=== PATIENT | female | born 1950 | race Caucasian/White ===

== ENCOUNTER → 2016-11-15 | Outpatient (CLI) | payer BC, MEDICARE ==
--- NOTE | 2016-11-15 10:44 | MM ---
Reason for exam: history of breast cancer, conservation therapy. Last mammogram was performed 1 year ago. History: Patient is postmenopausal and has history of breast cancer at age 63. Lumpectomy of the right breast, March 19, 2014. Malignant MG stereo VAD BX RT of the right breast, March 10, 2014. Radiation therapy of the right breast, March 2014. Benign core biopsy of the left breast, 2004. Benign excisional biopsy of the left breast, 1999. Taking antineoplastic for 2 years beginning at age 63. Physical Findings: Nurse did not find any significant physical abnormalities on exam. MG Diagnostic Mammo w CAD RICO Bilateral CC and MLO view(s) were taken. ML, spot compression MLO, and spot compression CC view(s) were taken of the left breast. Prior study comparison: November 01, 2014, bilateral MG diagnostic mammo w CAD RICO. There are scattered fibroglandular densities. Finding #1: Architectural distortion in both breasts. Finding #2: There are typically benign dystrophic, round calcifications in both breasts. Previous mammotome biopsy in the left breast. Increased dystrophic calcifications anteriorly left breast. These results were verbally communicated with the patient and result sheet given to the patient on 11/15/16. ASSESSMENT: Benign, BI-RAD 2 RECOMMENDATION: Routine screening mammogram of both breasts in 1 year.
== END | disposition home or self-care (01) ==
LOC: RADMAMWWP 09:09
PROVIDERS: ATTEND Radiology Diagnostic Radiology
DX: C50.911 Malignant neoplasm of unspecified site of right female breast (principal)

== ENCOUNTER → 2019-07-16 | Outpatient (CLI) | payer MEDICARE ==
--- NOTE | 2019-07-16 13:42 | US ---
EXAMINATION TYPE: US venous doppler duplex LE RT DATE OF EXAM: 07/16/2019 1:31 PM COMPARISON: NONE CLINICAL HISTORY: M79.661 PAIN IN RT LOWER LIMB. Fell 09 of April swelling of ankles pain in calf SIDE PERFORMED: RT TECHNIQUE: The lower extremity deep venous system is examined utilizing real time linear array sonog william with graded compression, doppler sonography and color-flow sonography. VESSELS IMAGED: External Iliac Vein (EIV) Common Femoral Vein Deep Femoral Vein Greater Saphenous Vein * Femoral Vein Popliteal Vein Small Saphenous Vein * Proximal Calf Veins (* superficial vessels) Right Leg: Negative for DVT Grayscale, color doppler, spectral doppler imaging performed of the deep veins of the right lower ext remity. There is normal flow, compressibility, vascular waveforms. IMPRESSION: No ultrasound evidence for acute DVT in the right lower extremity.
== END | disposition home or self-care (01) ==
LOC: RADUSWWP 12:43
PROVIDERS: ATTEND Family Medicine
DX: M79.661 Pain in right lower leg (principal)

== ENCOUNTER 2023-05-06 04:23 | Emergency (ER) | payer MEDICARE ==
[2023-05-06 04:33] VITALS: TEMP 97.9
[2023-05-06] MEDS ORDERED: ONDANSETRON 4 MG/2 ML VIAL IVP STA (05:30)
[2023-05-06] MEDS ORDERED: SODIUM CHLORIDE 0.9% 1,000 ML IV STA (05:30)
--- NOTE | 2023-05-06 05:31 | ED ---
Abdominal Pain HPI - General Source: patient, family, RN notes reviewed, old records reviewed Mode of arrival: wheelchair Limitations: no limitations - History of Present Illness MD Complaint: abdominal pain -: hour(s) Location: epigastric, suprapubic Radiation: epigastric, suprapubic Migration to: no migration Severity: moderate Severity scale (1-10): 7 Quality: sharp Consistency: constant Improves With: nothing Worsens With: nothing Associated Symptoms: nausea, vomiting Treatments Prior to Arrival: other (0) <Cruzito Leonard - Last Filed: 05/06/23 06:11> <Brando Underwood - Last Filed: 05/06/23 08:51> - General Chief Complaint: Abdominal Pain Stated Complaint: Abd Pain, Vomitting Time Seen by Provider: 05/06/23 04:52 - History of Present Illness Initial Comments: This is a 73-year-old female to the emergency department for evaluation today. Patient presents today for evaluation of abdominal pain abdominal pain with nausea and vomiting periumbilical fullness no fevers. Patient's pain is persistent bleeding to persistent nausea vomiting. Patient states this is severe abdominal pain is getting worse. She's never sore pain before and does have history of appendectomy (Cruzito Leonard) - Related Data Previous Rx's Medication Instructions Recorded Cephalexin [Keflex] 500 mg PO Q12HR #20 cap 05/06/23 HYDROcodone/APAP 5-325MG [[place] 1 tab PO Q6HR PRN #12 tab 05/06/23 5-325] Allergies Allergy/AdvReac Type Severity Reaction Status Date / Time latex Allergy Rash/Hives Verified 05/06/23 04:33 Review of Systems ROS Other: All systems not noted in ROS Statement are negative. <Cruzito Leonard - Last Filed: 05/06/23 06:11> ROS Other: All systems not noted in ROS Statement are negative. <Brando Underwood - Last Filed: 05/06/23 08:51> ROS Statement: Those systems with pertinent positive or pertinent negative responses have been documented in the HPI. Past Medical History Additional Past Medical History / Comment(s): Breast CA, Past Surgical History: Breast Surgery, Tubal Ligation Additional Past Surgical History / Comment(s): Ulcer Smoking Status: Never smoker Past Alcohol Use History: None Reported Past Drug Use History: None Reported <Cruzito Leonard - Last Filed: 05/06/23 06:11> General Exam General appearance: alert, in no apparent distress Head exam: Present: atraumatic, normocephalic, normal inspection Eye exam: Present: normal appearance, PERRL, EOMI. Absent: scleral icterus, conjunctival injection, periorbital swelling ENT exam: Present: normal exam, mucous membranes moist Neck exam: Present: normal inspection. Absent: tenderness, meningismus, lymphadenopathy Respiratory exam: Present: normal lung sounds bilaterally. Absent: respiratory distress, wheezes, rales, rhonchi, stridor Cardiovascular Exam: Present: regular rate, normal rhythm, normal heart sounds. Absent: systolic murmur, diastolic murmur, rubs, gallop, clicks GI/Abdominal exam: Present: soft, normal bowel sounds. Absent: distended, tenderness, guarding, rebound, rigid Extremities exam: Present: normal inspection, full ROM, normal capillary refill. Absent: tenderness, pedal edema, joint swelling, calf tenderness Back exam: Present: normal inspection Neurological exam: Present: alert, oriented X3, CN II-XII intact Psychiatric exam: Present: normal affect, normal mood Skin exam: Present: warm, dry, intact, normal color. Absent: rash <Cruzito Leonard - Last Filed: 05/06/23 06:11> Course <Cruzito Leonard - Last Filed: 05/06/23 06:11> Vital Signs 05/06/23 05/06/23 05/06/23 04:28 06:00 07:49 Temperature 97.9 F Pulse Rate 72 61 57 L Respiratory 20 18 18 Rate Blood Pressure 141/83 107/67 111/58 O2 Sat by Pulse 100 96 96 Oximetry - Reevaluation(s) Reevaluation #1: 05/06/23 06:12 Medical record is reviewed (Cruzito Leonard) Reevaluation #2: 05/06/23 06:13 Patient symptoms are improved (Cruzito Leonard) Reevaluation #3: 05/06/23 06:13 Spoke with patient regarding for results and questions answered (Cruzito Leonard) Reevaluation #4: 05/06/23 06:14 Was pt. sent in by a medical professional or institution ([facility], [facility], urgent care, hospital, or long-term...) When possible be specific @ -no Did you speak to anyone other than the patient for history (EMS, parent, family, police, friend...)? What history was obtained from this source @ -no Did you review nursing and triage notes (agree or disagree)? Why? @ -agree Are old charts reviewed (outside hosp., previous admission, EMS record, old EKG, old radiological studies, urgent care reports/EKG's, long-term records)? Report findings @ -yes Differential Diagnosis (chest pain, altered mental status, abdominal pain women, abdominal pain men, vaginal bleeding, weakness, fever, dyspnea, syncope, headache, dizziness, GI bleed, back pain, seizure, CVA, palpatations, mental health, musculoskeletal)? @ -prior EKG interpreted by me (3pts min.). @ -yes X-rays interpreted by me (1pt min.). @ -yes CT interpreted by me (1pt min.). @ -no U/S interpreted by me (1pt. min.). @ -no What testing was considered but not performed or refused? (CT, X-rays, U/S, labs)? Why? @ -none What meds were considered but not given or refused? Why? @ -none Did you discuss the management of the patient with other professionals (professionals i.e. [facility], [facility], lab, RT, psych nurse, nursing home social worker, day haul youth supervisor, teacher, staff air defense officer, case mgr)? Give summary @ -no Was smoking cessation discussed for >3mins.? @ -no Was critical care preformed (if so, how long)? @ -no Were there social determinants of health that impacted care today? How? (Homelessness, low income, unemployed, alcoholism, drug addiction, transportation, low edu. Level, literacy, decrease access to med. care, long-term, rehab)? @ -none Was there de-escalation of care discussed even if they declined (Discuss DNR or withdrawal of care, Hospice)? DNR status @ -no What co-morbidities impacted this encounter? (DM, HTN, Smoking, COPD, CAD, Cancer, CVA, ARF, Chemo, Hep., AIDS, mental health diagnosis, sleep apnea, morbid obesity)? @ -none Was patient admitted / discharged? Hospital course, mention meds given and route, prescriptions, significant lab abnormalities, going to OR and other pertinent info. @ - Undiagnosed new problem with uncertain prognosis? @ -no Drug Therapy requiring intensive monitoring for toxicity (Heparin, Nitro, Insulin, Cardizem)? @ -no Were any procedures done? @ -no Diagnosis/symptom? @ - Acute, or Chronic, or Acute on Chronic? @ -Acute Uncomplicated (without systemic symptoms) or Complicated (systemic symptoms)? @ -Complicated Side effects of treatment? @ -no Exacerbation, Progression, or Severe Exacerbation? @ -exacerbation Poses a threat to life or bodily function? How? (Chest pain, USA, ME, pneumonia, PE, COPD, DKA, ARF, appy, cholecystitis, CVA, Diverticulitis, Homicidal, Brianna cidal, threat to staff... and all critical care pts) @ -yes (Cruzito Leonard) Reevaluation #5: 05/06/23 06:14 Differential Abdominal Pain Women: Appendicitis, Cholecystitis, diverticulosis, ischemic bowel, pancreatitis, hepatitis, UTI, gastroenteritis, AAA, incarcerated hernia, bowel obstruction, constipation, inflammatory bowel, hepatitis, peptic ulcer disease, splenic infarction, perforated viscus, vulvitis, ovarian torsion, PID, kidney stone, placenta abruption, this is not meant to be an all-inclusive list (Cruzito Leonard) Medical Decision Making - EKG Data -: EKG Interpreted by Me (EKG is bradycardia 57 MO 84 QRS 87 QTC 420) <Cruzito Leonard - Last Filed: 05/06/23 06:11> - Lab Data Result diagrams: 05/06/23 05:42 05/06/23 05:42 <Brando Underwood - Last Filed: 05/06/23 08:51> - Medical Decision Making Was pt. sent in by a medical professional or institution (, [facility], [facility], urgent care, hospital, or long-term...) When possible be specific @ -No Did you speak to anyone other than the patient for history (EMS, parent, family, police, friend...)? What history was obtained from this source @ -[Patient's son who is at bedside Did you review nursing and triage notes (agree or disagree)? Why? @ -I reviewed and agree with nursing and triage notes Were old charts reviewed (outside hosp., previous admission, EMS record, old EKG, old radiological studies, urgent care reports/EKG's, long-term records)? Report findings @ -No old charts were reviewed Differential Diagnosis (chest pain, altered mental status, abdominal pain women, abdominal pain men, vaginal bleeding, weakness, fever, dyspnea, syncope, headache, dizziness, GI bleed, back pain, seizure, CVA, palpatations, mental health, musculoskeletal)? @ -[Differential Abdominal Pain Women: Appendicitis, Cholecystitis, diverticulosis, ischemic bowel, pancreatitis, hepatitis, UTI, gastroenteritis, AAA, incarcerated hernia, bowel obstruction, constipation, inflammatory bowel, hepatitis, peptic ulcer disease, splenic infarction, perforated viscus, PID, kidney stone, , this is not meant to be an all-inclusive list EKG interpreted by me (3pts min.). @ -As above X-rays interpreted by me (1pt min.). @ -None done CT interpreted by me (1pt min.). @ -CT showing left-sided hydronephrosis with obstructing distal stone U/S interpreted by me (1pt. min.). @ -None done What testing was considered but not performed or refused? (CT, X-rays, U/S, labs)? Why? @ -None What meds were considered but not given or refused? Why? @ -None Did you discuss the management of the patient with other professionals (professionals i.e. , PA, [facility], lab, RT, psych nurse, nursing home social worker, day haul youth supervisor, teacher, staff air defense officer, case mgr)? Give summary @ -No Was smoking cessation discussed for >3mins.? @ -No Was critical care preformed (if so, how long)? @ -No Were there social determinants of health that impacted care today? How? (Homelessness, low income, unemployed, alcoholism, drug addiction, trans portation, low edu. Level, literacy, decrease access to med. care, long-term, rehab)? @ -No Was there de-escalation of care discussed even if they declined (Discuss DNR or withdrawal of care, Hospice)? DNR status @ -No What co-morbidities impacted this encounter? (DM, HTN, Smoking, COPD, CAD, Cancer, CVA, ARF, Chemo, Hep., AIDS, mental health diagnosis, sleep apnea, morbid obesity)? @ -History of kidney stone, Was patient admitted / discharged? Hospital course, mention meds given and r oute, prescriptions, significant lab abnormalities, going to OR and other pertinent info. @ -73-year-old female, care had been signed out at shift change awaiting CT imaging. She had presented with lower abdominal pain which she states was bilateral. This was associated with nausea vomiting. This was sudden onset. CT shows an obstructing stone in the left ureter. Patient had been given pain medication. She had a normal CBC without leukocytosis, normal CMP, normal lactic acid. Urinalysis was nitrate positive with rare bacteria. Urine culture was obtained. Given the obstructing stone she does receive prophylactic antibiotics although this is a quite minimally positive urinalysis. She feels 100% better throughout her stay in the emergency department after initial pain medication. No further vomiting. She's given a urine strainer. She is given prophylactic antibiotics. She will follow-up with urology. She's given strict return parameters. Undiagnosed new problem with uncertain prognosis? @ -No Drug Therapy requiring intensive monitoring for toxicity (Heparin, Nitro, Insulin, Cardizem)? @ -No Were any procedures done? @ -No Diagnosis/symptom? @ Obstructing kidney stone Acute, or Chronic, or Acute on Chronic? @ -[Acute Uncomplicated (without systemic symptoms) or Complicated (systemic symptoms)? @ -default Side effects of treatment? @ -No Exacerbation, Progression, or Severe Exacerbation? @ -No Poses a threat to life or bodily function? How? (Chest pain, USA, ME, pneumonia, PE, COPD, DKA, ARF, appy, cholecystitis, CVA, Diverticulitis, Homicidal, Suicidal, threat to staff... and all critical care pts) @ -[Low risk at this time (Brando Underwood) - Lab Data Lab Results 05/06/23 05/06/23 05/06/23 Range/Units 05:42 05:42 05:42 WBC 9.0 (3.8-10.6) k/uL RBC 5.04 (3.80-5.40) m/uL Hgb 14.5 (11.4-16.0) gm/dL Hct 43.8 (34.0-46.0) % MCV 86.8 (80.0-100.0) fL MCH 28.8 (25.0-35.0) pg MCHC 33.2 (31.0-37.0) g/dL RDW 15.9 H (11.5-15.5) % Plt Count 249 (150-450) k/uL MPV 9.3 Neutrophils % 81 % Lymphocytes % 10 % Monocytes % 7 % Eosinophils % 0 % Basophils % 0 % Neutrophils # 7.3 (1.3-7.7) k/uL Lymphocytes # 0.9 L (1.0-4.8) k/uL Monocytes # 0.6 (0-1.0) k/uL Eosinophils # 0.0 (0-0.7) k/uL Basophils # 0.0 (0-0.2) k/uL Sodium 134 L (137-145) mmol/L Potassium 4.7 (3.5-5.1) mmol/L Chloride 102 (98-107) mmol/L Carbon Dioxide 23 (22-30) mmol/L Anion Gap 9 mmol/L BUN 14 (7-17) mg/dL Creatinine 0.50 L (0.52-1.04) mg/dL Est GFR (CKD-EPI)AfAm >90 (>60 ml/min/1.73 sqM) Est GFR (CKD-EPI)NonAf >90 (>60 ml/min/1.73 sqM) Glucose 101 H (74-99) mg/dL Plasma Lactic Acid [place] 1.7 (0.7-2.0) mmol/L Calcium 9.5 (8.4-10.2) mg/dL Total Bilirubin 1.2 (0.2-1.3) mg/dL AST 41 H (14-36) U/L ALT 32 (4-34) U/L Alkaline Phosphatase 69 (38-126) U/L Total Protein 8.4 H (6.3-8.2) g/dL Albumin 4.1 (3.5-5.0) g/dL Amylase 47 (30-110) U/L Lipase 49 (23-300) U/L Urine Color Urine Appearance (Clear) Urine pH (5.0-8.0) Ur Specific [place] (1.001-1.035) Urine Protein (Negative) Urine Glucose (UA) (Negative) Urine Ketones (Negative) Urine Blood (Negative) Urine Nitrite (Negative) Urine Bilirubin (Negative) Urine Urobilinogen (<2.0) mg/dL Ur Leukocyte Esterase (Negative) Urine WBC (0-5) /hpf Urine Bacteria (None) /hpf 05/06/23 Range/Units 07:40 WBC (3.8-10.6) k/uL RBC (3.80-5.40) m/uL Hgb (11.4-16.0) gm/dL Hct (34.0-46.0) % MCV (80.0-100.0) fL MCH (25.0-35.0) pg MCHC (31.0-37.0) g/dL RDW (11.5-15.5) % Plt Count (150-450) k/uL MPV Neutrophils % % Lymphocytes % % Monocytes % % Eosinophils % % Basophils % % Neutrophils # (1.3-7.7) k/uL Lymphocytes # (1.0-4.8) k/uL Monocytes # (0-1.0) k/uL Eosinophils # (0-0.7) k/uL Basophils # (0-0.2) k/uL Sodium (137-145) mmol/L Potassium (3.5-5.1) mmol/L Chloride (98-107) mmol/L Carbon Dioxide (22-30) mmol/L Anion Gap mmol/L BUN (7-17) mg/dL Creatinine (0.52-1.04) mg/dL Est GFR (CKD-EPI)AfAm (>60 ml/min/1.73 sqM) Est GFR (CKD-EPI)NonAf (>60 ml/min/1.73 sqM) Glucose (74-99) mg/dL Plasma Lactic Acid [place] (0.7-2.0) mmol/L Calcium (8.4-10.2) mg/dL Total Bilirubin (0.2-1.3) mg/dL AST (14-36) U/L ALT (4-34) U/L Alkaline Phosphatase (38-126) U/L Total Protein (6.3-8.2) g/dL Albumin (3.5-5.0) g/dL Amylase (30-110) U/L Lipase (23-300) U/L Urine Color Colorless Urine Appearance Clear (Clear) Urine pH 8.0 (5.0-8.0) Ur Specific [place] 1.020 (1.001-1.035) Urine Protein Negative (Negative) Urine Glucose (UA) Negative (Negative) Urine Ketones Trace (Negative) Urine Blood Negative (Negative) Urine Nitrite Positive (Negative) Urine Bilirubin Negative (Negative) Urine Urobilinogen <0.2 (<2.0) mg/dL Ur Leukocyte Esterase Negative (Negative) Urine WBC 4 (0-5) /hpf Urine Bacteria Moderate H (None) /hpf Disposition <Cruzito Leonard - Last Filed: 05/06/23 06:11> Is patient prescribed a controlled substance at d/c from ED?: No Time of Disposition: 08:48 <Brando Underwood - Last Filed: 05/06/23 08:51> Clinical Impression: Calculus of kidney, Hydronephrosis Disposition: HOME SELF-CARE Condition: Good Instructions (If sedation given, give patient instructions): Kidney Stones (ED), Renal Colic (ED) Prescriptions: Cephalexin [Keflex] 500 mg PO Q12HR #20 cap HYDROcodone/APAP 5-325MG [[place] 5-325] 1 tab PO Q6HR PRN #12 tab PRN Reason: Pain Referrals: Awilda Madden NPC [Primary Care Provider] - 1-2 days Robinson Starr MD [STAFF PHYSICIAN] - 1-2 days
[2023-05-06] MEDS ORDERED: MORPHINE SULFATE 4 MG/ML SYRINGE IVP STA (05:46)
[2023-05-06 06:13] LABS: Basophils % (A) 0 %; Eosinophils % (A) 0 %; HCT 43.8 % (34.0-46.0); HGB 14.5 gm/dL (11.4-16.0); Lymphocytes # (A) 0.9 k/uL (1.0-4.8); Lymphocytes % (A) 10 %; MCH 28.8 pg (25.0-35.0); MCHC 33.2 g/dL (31.0-37.0); MCV 86.8 fL (80.0-100.0); Mean Platelet Volume 9.3; Monocytes # (A) 0.6 k/uL (0-1.0); Monocytes % (A) 7 %; Neutrophils # (A) 7.3 k/uL (1.3-7.7); Neutrophils % (A) 81 %; Platelet Count 249 k/uL (150-450); RBC 5.04 m/uL (3.80-5.40); RDW 15.9 % (11.5-15.5)
[2023-05-06 06:28] LABS: ALT 32 U/L (4-34); AST 41 U/L (14-36); African American GFR (CKD) >90 (>60 ml/min/1.73 sqM); Albumin 4.1 g/dL (3.5-5.0); Alkaline Phosphatase 69 U/L (38-126); Amylase 47 U/L (30-110); Anion Gap 9 mmol/L; Blood Urea Nitrogen 14 mg/dL (7-17); Calcium 9.5 mg/dL (8.4-10.2); Carbon Dioxide 23 mmol/L (22-30); Chloride 102 mmol/L (98-107); Glucose 101 mg/dL (74-99); Lipase 49 U/L (23-300); Non-African American GFR(CKD) >90 (>60 ml/min/1.73 sqM); Potassium 4.7 mmol/L (3.5-5.1); Sodium 134 mmol/L (137-145); Total Bilirubin 1.2 mg/dL (0.2-1.3); Total Protein 8.4 g/dL (6.3-8.2)
[2023-05-06 06:32] VITALS: RESP 18
--- NOTE | 2023-05-06 07:20 | CT ---
EXAMINATION TYPE: CT abdomen pelvis wo con CT DLP: 406.8 mGycm, Automated exposure control for dose reduction was used. DATE OF EXAM: 05/06/2023 6:11 AM COMPARISON: None CLINICAL INDICATION:Female, 73 years old with history of pain; TECHNIQUE: Axial CT of the abdomen and pelvis. Sagittal and coronal reformats were created on a [employer] workstation. Contrast used: mL of , (none if empty) Oral contrast used: (none if empty) FINDINGS: LOWER CHEST: Breast clips in the right breast. ABDOMEN LIVER: Unremarkable GALLBLADDER AND BILE DUCTS: Unremarkable. PANCREAS: Unremarkable. SPLEEN: Unremarkable. ADRENAL GLANDS: Unremarkable. KIDNEYS AND URETERS: Obstructing left ureteral calculus at the ureteral pelvic brim measuring up to 1 0 x 7 mm. Mild left hydronephrosis. Additional nonobstructing left 6 mm calculus. No right renal calc victorina or hydronephrosis. PELVIS BLADDER: Unremarkable REPRODUCTIVE: Unremarkable. ABDOMEN & PELVIS STOMACH AND BOWEL: No evidence of bowel obstruction. Scattered colonic diverticula. There may be mild wall thickening of the sigmoid colon. PERITONEUM/RETROPERITONEUM: No evidence of pneumoperitoneum or free fluid. VASCULATURE: No evidence of aortic aneurysm. Severe degeneration changes of the hips bilaterally with subchondral cysts and sclerosis on the right with complete loss of joint space. MUSCULOSKELETAL: No acute osseous abnormalities LYMPH NODES: No gross evidence for lymphadenopathy. SOFT TISSUE/ABDOMINAL WALL: Fat-containing umbilical hernia. IMPRESSION: 1. There is mild hydronephrosis secondary to ureteral calculus in the left mid ureter near the pelvi c brim measuring up to 10 x 7 mm. Additional nonobstructing left renal calculus. 2. Sigmoid wall thickening suggestive of colitis with superimposed Colonic diverticulosis.
[2023-05-06 08:22] LABS: Appearance,Urine Clear (Clear); Color,Urine Colorless
[2023-05-06 08:23] LABS: Bilirubin,Urine Negative (Negative); Blood,Urine Negative (Negative); Glucose,Urine (UA) Negative (Negative); Ketones,Urine Trace (Negative); Nitrite,Urine Positive (Negative); Protein,Urine Negative (Negative); Urobilinogen,Urine <0.2 mg/dL (<2.0)
[2023-05-06 08:24] LABS: Leukocyte Esterase,Urine Negative (Negative)
[2023-05-06 08:27] LABS: Bacteria,Urine Moderate /hpf
[2023-05-06 08:28] LABS: WBC,Urine 4 /hpf (0-5)
[2023-05-06] MEDS ORDERED: cefTRIAXone IN SWFI 1,000 MG/10 ML SYRINGE IVP STA (08:40)
[2023-05-06 08:56] VITALS: BP 149/64; PULSE 55
== END 2023-05-06 09:23 | disposition home or self-care (01) ==
LOC: EC 04:23
DX: N13.2 Hydronephrosis with renal and ureteral calculous obstruction (principal); Z91.040 Latex allergy status
CPT/HCPCS: 36415; 80053; 82150; 83605; 83690; 85025; 81001; 87086; 74176; 99285; 96374; 96375 ×2; 96361 ×2; J2270; J2405; J0696

== ENCOUNTER → 2023-05-09 | Day surgery (SDC) | payer MEDICARE ==
[2023-05-08 10:19] VITALS: BMI 23.4
--- NOTE | 2023-05-08 22:05 | P.GSHP ---
History of Present Illness H&P Date: 05/08/23 Chief Complaint: Left renal colic The patient is a 73-year-old white female with a history of urolithiasis in the remote past. She now presents with abdominal pain which began 05/05/2023. CT scan shows mild left hydronephrosis due to a 7 x 10 mm left distal ureteral calculus. A left upper pole renal calculus was also seen. - Constitutional Constitutional: Reports chills, Reports fever - Gastrointestinal Gastrointestinal: Reports nausea, Reports vomiting - Genitourinary (Female) Genitourinary: Denies dysuria, Denies hematuria Past Medical History Past Medical History: Cancer, Osteoarthritis (OA), Rheumatoid Arthritis (RA) Additional Past Medical History / Comment(s): left kidney stones-having alot of nausea-not taking very much fluids in or tolerating food., rt Breast CA 2013- received radiation tx's/no chem,bleeding ulcer History of Any Multi-Drug Resistant Organisms: None Reported Past Surgical History: Appendectomy, Breast Surgery, Tubal Ligation Additional Past Surgical History / Comment(s): rt breast lumpectomy,EGD,colonoscopy,pain clinic procedures to back Past Anesthesia/Blood Transfusion Reactions: No Reported Reaction Additional Past Anesthesia/Blood Transfusion Reaction / Comment(s): no hx blood transfusion Smoking Status: Former smoker - Past Family History Mother Family Medical History: No Reported History Medications and Allergies Home Medications Medication Instructions Recorded Confirmed Type Cephalexin [Keflex] 500 mg PO Q12HR #20 cap 05/06/23 05/08/23 Rx Cholecalciferol [Vitamin D3 (25 25 mcg PO DAILY 05/08/23 05/08/23 History Mcg = 1000 Iu)] Ketorolac [Toradol] 10 mg PO Q6HR PRN 05/08/23 05/08/23 History Multivitamins, Thera [Multivitamin 1 tab PO DAILY 05/08/23 05/08/23 History (formulary)] Ondansetron [Zofran] 4 mg PO Q6H PRN 05/08/23 05/08/23 History Allergies Allergy/AdvReac Type Severity Reaction Status Date / Time latex Allergy Rash/Hives Verified 05/08/23 10:05 hydrocodone AdvReac Nausea & Verified 05/08/23 10:34 Vomiting Surgical - Exam - General well developed, well nourished, moderate distress - Neck no masses, trachea midline - Respiratory normal respiratory effort - Abdomen Abdomen: soft, non tender, no guarding, no rigid, no rebound - Psychiatric oriented to time, oriented to person, oriented to place, speech is normal, memory intact Results - Imaging CT scan - abdomen: report reviewed, image reviewed Assessment and Plan Assessment: The patient has a large distal ureteral calculus which does not have a particularly high chance of spontaneous passage. She was offered the options of medical expulsion therapy, extracorporal shockwave lithotripsy (ESWL), and ureteroscopy with laser lithotripsy. (1) Calculus of ureter Status: Acute Code(s): N20.1 - CALCULUS OF URETER SNOMED Code(s): 46234737 (2) Calculus of kidney Status: Acute Code(s): N20.0 - CALCULUS OF KIDNEY SNOMED Code(s): 45064766 Plan: Cystoscopy, left ureteroscopy with Holmium laser lithotripsy and possible stone basketing, left ureteral stent insertion. The procedures been reviewed in detail with the patient. She has been made aware of potential risks, which include anesthesia, bleeding, infection, inability to remove the calculi, and ureteral injury.
[~2023-05-09] MED LIST: DEXAMETHASONE SOD PHOSPHATE 4 MG/ML 1 ML VIAL IV ONE; GENTAMICIN 68 MG in SODIUM CHLORIDE 0.9% 100 ML IVPB PRN; GLYCOPYRROLATE 0.2 MG/ML 2 ML VIAL ONE; LACTATED RINGERS 1,000 ML IV SCH; LIDOCAINE 2% INJ 20 MG/ML (2 ML VIAL) ONE; NEOSTIGMINE 1 MG/ML 10 ML VIAL ONE; ONDANSETRON 4 MG/2 ML VIAL IVP ONE; PROPOFOL 10 MG/ML 20 ML VIAL IV ONE; ROCURONIUM 10 MG/ML (5 ML VIAL) IV ONE; SUCCINYLCHOLINE CHLORIDE 200 MG/10 ML VIAL IV ONE; fentaNYL (PF) 50 MCG/ML 2 ML AMP ONE
--- NOTE | 2023-05-09 11:39 | XR ---
EXAMINATION TYPE: XR KUB DATE OF EXAM: 05/09/2023 COMPARISON: CT abdomen pelvis 05/06/2023 HISTORY: Calculus TECHNIQUE: Single supine KUB image of the abdomen is obtained FINDINGS: Small bowel demonstrates no evidence for dilatation or air fluid levels. Gas and fecal material is seen in non-distended colon. No convincing evidence for pneumoperitoneum. Multiple pelvic phleboliths. Stable position of a millimeter calculus within the distal left ureter a t the level of the S1-S2 vertebral body. The lung bases are clear. The osseous structures are intact. Degenerative changes of the lumbar spine. IMPRESSION: Stable position of left distal ureter 8 mm calculus.
--- NOTE | 2023-05-09 14:33 | P.OP ---
Date of Procedure: 05/09/23 Preoperative Diagnosis: Left ureteral calculus, left renal calculus Postoperative Diagnosis: Left ureteral stricture, left renal calculus Procedure(s) Performed: Cystoscopy, balloon dilation of left distal ureteral stricture, left ureteroscopy with Holmium laser lithotripsy, left ureteral stent insertion Anesthesia: LIONELA Surgeon: Robinson Starr Estimated Blood Loss (ml): 5 IV fluids (ml): 500 Pathology: none sent Condition: stable Disposition: PACU Indications for Procedure: The patient is a 73-year-old white female with a history of urolithiasis in the remote past. She now presents with abdominal pain which began 05/05/2023. CT scan shows mild left hydronephrosis due to a 7 x 10 mm left distal ureteral calculus. A left upper pole renal calculus was also seen. Operative Findings: Left distal ureteral stricture. Left upper pole renal calculus, fragmented completely. Description of Procedure: The patient was taken to the operating room and placed in the dorsolithotomy position, with legs supported in Jaylen stirrups. The external genitalia was prepped and draped sterilely. The 30 lens was used to introduce the 21-Bruneian Cisneros cystoscopic sheath through the urethra and into the bladder under direct vision. The bladder was examined in its entirety. Both ureteral orifices were normal anatomic location and configuration, and clear urine effluxed from both. No tumors or foreign bodies were seen. The Cisneros semirigid ureteroscope was advanced into the bladder, and the left ureteral orifice was cannulated. The ureteroscope could only be advanced 1-2 cm due to ureteral narrowing. A 0.035 inch Glidewire was passed through the ureteroscope and advanced up to the left renal pelvis. A 4 cm, 18-Bruneian balloon dilating catheter was passed over the wire and was used to dilate the distal ureter. It was then possible to pass the semirigid ureteroscope through this area and up to the UPJ. No ureteral calculi were seen. It should be noted that as the Glidewire was initially passed into the ureter, the calcification at the level of the iliac vessels appeared to be separate from the Glidewire. The Glidewire was once again passed through the ureteroscope, which was removed, and an 11/13-Bruneian ureteral access catheter was passed over the wire, up to the proximal ureter. The Cisneros Cobra flexible ureteroscope was then passed through the ureteral access catheter sheath and into the left renal pelvis under direct vision. Each calyx was examined. The only calculus seen measured approximately 5 mm within the upper pole. It was obviously not dense. The 200 micron Holmium laser probe was passed through the ureteroscope, and lithotripsy was performed utilizing a dusting mode. The calculus fragmented readily, and this was continued until there were no calculus fragments exceeding the size of the laser fiber tip. The ureteroscope was slowly withdrawn under direct vision. There was no evidence of ureteral trauma, other than some mucosal splitting at the site of balloon dilation, and again no calculi were seen. The Glidewire was passed through the ureteroscope and up to the left renal pelvis. After removing the ureteroscope, the Glidewire was backloaded into the cystoscope, which was passed into the bladder. A 22 cm, 6- Bruneian double-J ureteral stent was placed over the wire. Proper stent positioning was verified fluoroscopically and endoscopically. The bladder was emptied and the cystoscope removed. The patient tolerated the procedure well and was taken to the recovery room in stable condition. PIOTR ROCKS Report: Procedure Acuity: Semi-Urgent Stone Size and Location: 5 mm, left upper pole Ureteral Dilation: Balloon Dilation Ureteral Access Sheath Used: Yes Stone Sent for Analysis: No All Stones/Fragments Were Removed with a Basket: No Complications: No Preoperative Antibiotics Given: Yes Stent Placed: Yes If Stent Placed, Was String Left Attached: No If Stent Placed, When is it to be Removed: 1 month Discharge Medications: Tamsulosin, tolterodine, Toradol
[2023-05-09] MEDS: HYDROmorphone 0.5 MG/0.5 ML SYRINGE IVP PRN ×2 (14:44→14:56)
[2023-05-09 14:46] VITALS: TEMP 98.2
[2023-05-09 14:49] VITALS: RESP 16
[2023-05-09 16:03] VITALS: BP 141/70; PULSE 60
--- NOTE | 2023-05-09 18:39 | FL ---
EXAMINATION TYPE: FL urography retrograde DATE OF EXAM: 05/09/2023 FLUOROSCOPY Fluoroscopy time of 71 seconds was used during urologic intervention. 2 image/s document/s the ievtte burns. Total DAP: 0.3124 Gycm2.
== END | disposition home or self-care (01) ==
LOC: OR 11:08
PROVIDERS: ATTEND Urology
DX: M06.9 Rheumatoid arthritis, unspecified (principal); Z87.891 Personal history of nicotine dependence; Z90.49 Acquired absence of other specified parts of digestive tract; Z91.040 Latex allergy status; Z88.5 Allergy status to narcotic agent
CPT/HCPCS: 74420; 74018; 52356; C1758 ×3; C1769; C1894; J0330; J1100; J2710; J0690; J2405; J3010; J1580; J2704; J1170; J2001

== ENCOUNTER → 2024-06-29 | Outpatient (CLI) | payer MEDICARE | END | disposition home or self-care (01) | LOC: LABPAT 10:17 | PROVIDERS: ATTEND Orthopaedic Surgery | DX: Z01.812 Encounter for preprocedural laboratory examination (principal); Z22.322 Carrier or suspected carrier of Methicillin resistant Staphylococcus aureus; M16.11 Unilateral primary osteoarthritis, right hip | CPT/HCPCS: 36415; 86850; 86900; 86901; 87070 ==

== ENCOUNTER 2024-07-09 07:19 | Day surgery (SDC) | payer MEDICARE ==
--- NOTE | 2024-07-08 13:07 | HP ---
HISTORY AND PHYSICAL Surgery is scheduled for 07/09/2024. HISTORY OF PRESENT ILLNESS: Ana Rebolledo is a 74-year-old patient seen with symptomatic right hip osteoarthritis. We discussed options regarding treatment. She elected to proceed with direct anterior right total hip arthroplasty. Consent regarding the procedure was obtained. Medical clearance was provided by ADEOLA Pierce. PAST MEDICAL HISTORY: Noncontributory. PAST SURGICAL HISTORY: Breast biopsy, tubal ligation, appendectomy, carpal tunnel release. DAILY MEDICATIONS: 1. Multivitamin. 2. Motrin. ALLERGIES: [place]. SOCIAL HISTORY: She denies current tobacco use. PHYSICAL EVALUATION OF THE RIGHT HIP: She has limited range of motion with severe pain. Positive hip impingement sign. Straight-leg raise negative. Her distal neurovascular exam is intact. IMAGING STUDIES: Radiographs of the right hip revealed severe osteoarthritic changes. IMPRESSION: Right hip osteoarthritis. PLAN: Direct anterior right total hip arthroplasty. MMODL / IJN: [id number] /
[~2024-07-09 07:19] MED LIST changes: -DEXAMETHASONE SOD PHOSPHATE 4 MG/ML 1 ML VIAL IV ONE; -GENTAMICIN 68 MG in SODIUM CHLORIDE 0.9% 100 ML IVPB PRN; -GLYCOPYRROLATE 0.2 MG/ML 2 ML VIAL ONE; +HYDROmorphone 0.5 MG/0.5 ML SYRINGE IVP PRN; -LACTATED RINGERS 1,000 ML IV SCH; +LIDOCAINE 1% (10MG/ML) FOR IV START INTRADERMA PRN; -LIDOCAINE 2% INJ 20 MG/ML (2 ML VIAL) ONE; +MIDAZOLAM 2 MG/2 ML VIAL IV PRN; -NEOSTIGMINE 1 MG/ML 10 ML VIAL ONE; -ONDANSETRON 4 MG/2 ML VIAL IVP ONE; -PROPOFOL 10 MG/ML 20 ML VIAL IV ONE; -ROCURONIUM 10 MG/ML (5 ML VIAL) IV ONE; -SUCCINYLCHOLINE CHLORIDE 200 MG/10 ML VIAL IV ONE; +TRANEXAMIC 1,000 MG/100ML-NACL 1,000 MG in SALINE 1 100ML.BAG IVPB PRN; +fentaNYL (PF) 50 MCG/ML 2 ML AMP IVP PRN; -fentaNYL (PF) 50 MCG/ML 2 ML AMP ONE
[2024-07-09] MEDS: MELOXICAM 7.5 MG TAB PO PRN (08:30)
[2024-07-09] MEDS: LACTATED RINGERS 1,000 ML IV SCH (08:30)
[2024-07-09] MEDS: ACETAMINOPHEN TAB 500 MG TAB PO PRN (08:30)
[2024-07-09] MEDS: ONDANSETRON 4 MG/2 ML VIAL IVP ONE (08:31)
[2024-07-09] MEDS: DEXAMETHASONE SOD PHOSPHATE 4 MG/ML 1 ML VIAL IV ONE (08:31)
[2024-07-09] MEDS: IV FLUID CONTINUATION 1,000 ML IV ONE ×3 (08:45→12:44)
[2024-07-09] MEDS: MIDAZOLAM 2 MG/2 ML VIAL IVP ONE (09:19)
[2024-07-09] MEDS ORDERED: DEXAMETHASONE SOD PHOSPHATE 4 MG/ML 1 ML VIAL ONE (09:41)
[2024-07-09] MEDS ORDERED: ROPIVACAINE 5 MG/ML 30 ML VIAL ONE (09:41)
[2024-07-09] MEDS ORDERED: PHENYLEPHRINE-0.9% NACL SYG 1,000 MCG/10 ML SYRINGE ONE (09:41)
[2024-07-09] MEDS ORDERED: MIDAZOLAM 2 MG/2 ML VIAL ONE (09:41)
[2024-07-09] MEDS ORDERED: fentaNYL (PF) 50 MCG/ML 2 ML AMP ONE (09:41)
[2024-07-09] MEDS ORDERED: PROPOFOL 10 MG/ML 20 ML VIAL IV ONE (09:41)
[2024-07-09] MEDS ORDERED: GLYCOPYRROLATE 0.2 MG/ML 2 ML VIAL ONE (09:41)
[2024-07-09] MEDS ORDERED: ePHEDrine 50 MG/ML 1 ML VIAL ONE (09:41)
[2024-07-09] MEDS: ceFAZolin 1,000 MG in SODIUM CHLORIDE 0.9% 1,000 ML IRRIGATION ONE (09:46)
[2024-07-09] MEDS ORDERED: HYDROcodone/APAP 5-325MG 1 EACH TAB PO PRN ×2 (11:13)
[2024-07-09] MEDS ORDERED: HYDROmorphone 0.5 MG/0.5 ML SYRINGE IVP PRN ×3 (11:13)
[2024-07-09] MEDS ORDERED: ONDANSETRON 4 MG/2 ML VIAL IVP PRN (11:13)
[2024-07-09] MEDS ORDERED: NALOXONE 0.4 MG/ML 1 ML VIAL IV PRN (11:13)
--- NOTE | 2024-07-09 11:13 | P.OP ---
Date of Procedure: 07/09/24 Preoperative Diagnosis: Right hip osteoarthritis Postoperative Diagnosis: Right hip osteoarthritis Procedure(s) Performed: Direct anterior right total hip arthroplasty Implants: 1. DePuy [place] 125 degree standard collared size 12 press-fit femoral stem 2. DePuy [place] 50 mm multihole press-fit acetabular shell 3. DePuy [place] neutral polyethylene acetabular liner 32 mm ID 50 mm OD 4. Biolox delta ceramic femoral head +1 32 mm Anesthesia: regional (Erector spinae block), spinal Surgeon: Ricky Sales Brick Burner #1: Rosalino Ha Estimated Blood Loss (ml): 45 Pathology: none sent Condition: stable Disposition: PACU Indications for Procedure: 74-year-old patient seen with symptomatic right hip osteoarthritis. After having treatment options discussed, she elected to proceed with direct anterior right total hip arthroplasty. Operative Findings: See description of procedure Description of Procedure: The patient was taken to the operative suite. Patient underwent a spinal anesthetic by the department of anesthesia. Patient was then transferred to the [place] table. Patient was given preoperative IV antibiotics and TXA. Both lower extremities were placed in standard leg spars. The hip was then prepped and draped in the normal sterile orthopedic fashion. A standard anterior incision was made beginning 3 cm lateral and 1 cm distal to the ASIS extending 10 cm. Dissection was then carried down through the subcutaneous soft tissues down to the fascia overlying the tensor fascia chris. An incision was now made through the fascia. Careful dissection was taken down exposing the tensor fascia chris muscle. A Cobra retractor was now placed along the medial femoral neck and a second one along the lateral femoral neck. The venous circumflex vessels were now identified, cauterized and clipped. We identified the anterior hip capsule. An incision was made through the hip capsule along the lateral border. I performed a partial anterior capsulectomy. Retractors were now placed around the femoral neck itself. A femoral neck cut was now made with a sagittal saw. It was completed with an osteotome at the lateral neck area. The femoral head was now removed without difficulty. The extremity was now rotated to 60 of external rotation. It was locked in position. Residual labrum was now debrided out. Serial reaming was performed of the acetabulum while Dave MIR assisted holding an anterior retractor for exposure. Once we reached the appropriate size and a trial was position and fit nicely. The appropriate size was now chosen opened and made available. It was introduced into the acetabulum without difficulty. The C-arm/fluoroscopy was now brought into the operative field. We made sure we had a true AP pelvic view. We now under direct C- arm/fluoroscopy introduced into the acetabular component with appropriate version and inclination. I held the cup in appropriate position well Dave MIR used a mallet to seat the acetabular component. I noted the component now to be well seated and stable. Acetabular cup introduce her was removed. The C-arm was pulled back. An appropriate liner was introduced and clicked into position. It was felt to be stable. At this point retractors were removed. The extremity was now placed into 140 external rotation with no traction. The leg was now dropped to the ground and adducted. Appropriate retractors were now positioned along the proximal femur. We also placed our femoral look into position. Additional capsular releasing was performed to gain access to the proximal femur. We now used a box osteotome. A canal finder was now utilized. Serial broaching was now performed with the assistance of Dave MIR tapping the broaches down with a mallet while held the broach in appropriate rotation and position. This was done until we reached the appropriate size with good overall rotational stability. Appropriate calcar planing was performed. A tria l head/neck was placed into position. The hip was now reduced. The C- arm/fluoroscopy was brought back into the operative field. I obtained an AP pelvis demonstrating adequate leg length alignment. The trial components appeared adequately sized and positioned. The C-arm/fluoroscopy was pulled back. Retractors were repositioned and the hip was dislocated. The leg was again taken down to the ground and adducted. Appropriate retractors were repositioned as well as the femoral hook. All trial components were removed. The femoral implant was opened along with the femoral head. The femoral implant was introduced on the appropriate handle into our pre-broached area. I held the component position well Dave MIR used a mallet to seat the femoral component. The femoral component was now noted to be well seated and stable.. The femoral head was introduced with good positioning and fixation noted. Retractors were now removed. The hip was now reduced. There appeared be good positioning of the hip confirmed on intraoperative fluoroscopy. Spot films were obtained to document this. A second gram of TXA was given. The deep and superficial soft tissues were infiltrated with local analgesic. Bipolar cautery had been utilized intermittently through the procedure for hemostasis. The wound was irrigated copiously with pulse lavage mechanical irrigation. The fascia was repaired with Vicryl suture. The subcutaneous soft tissues were repaired in layers with Vicryl suture. The skin was approximated with pernio/Dermabond. Sterile dressings were applied. Patient was then awakened, transferred to a bed and taken to recovery in stable condition. Daev MIR assisted with the complex procedure.
--- NOTE | 2024-07-09 11:24 | FL ---
EXAMINATION TYPE: FL guidance operating room, XR Hip Limited RT DATE OF EXAM: 07/09/2024 11:18 AM COMPARISON: Pre Operative Images if available both CT/MRI or plain film CLINICAL INDICATION: Female, 74 years old with history of M16.11 OA RIGHT HIP; TECHNIQUE: FL guidance operating room, XR Hip Limited RT, multiple fluoroscopic images provided for p rocedure. Total fluoroscopy time: 10 seconds Total submitted images to PACS: 2 DAP: 0.4671 mGym2 Gycm2 uGym2 cGycm2 or equivalent. FINDINGS: Fluoroscopic images during internal fixation/arthroplasty demonstrate fixation hardware in appropriat e position. Hardware appears intact. No immediate complication identified. IMPRESSION: 1. No evidence for intraoperative complication. 2. Please see the operative/procedural note for further details. [facility], , 07/09/2024 11:22 AM
[2024-07-09] MEDS: SODIUM CHLORIDE 0.9% 1,000 ML IV SCH (12:28)
[2024-07-09] MEDS: MULTIVITAMINS, THERA 1 EACH TAB PO SCH (13:37)
[2024-07-09] MEDS: traMADol 50 MG TAB PO SCH (13:37)
[2024-07-09] MEDS: SENNOSIDES-DOCUSATE SODIUM 1 EACH TAB PO SCH (21:22)
[2024-07-09] MEDS: ASPIRIN 325 MG TAB PO SCH (21:22)
--- NOTE | 2024-07-10 06:32 | P.ANPRN ---
Procedure Note - Anesthesia - Nerve Block Performed Right [place] Single Time Out Performed: Yes Date of Procedure: 07/09/24 Procedure Start Time: :18 Procedure Stop Time: : Location of Patient: PreOp Indication: Acute Post-Operative Pain, Requested by Surgeon Sedation Type: Sedate with meaningful contact maintained Preparation: Sterile Prep Position: Supine Needle Types: Pajunk Needle Gauge: 21 Ultrasound used to visualize needle placement: Yes Ultrasound used to observe medication spread: Yes Blood Aspirated: No Pain Paresthesia on Injection Noted: No Resistance on Injection: Normal Image Stored and Saved: Yes Events: Uneventful and Well Tolerated (Ropivacaine 0.5% 20 cc plus dexamethasone 4 mg)
[2024-07-10 08:43] VITALS: BP 104/73; PULSE 90; RESP 18; TEMP 97.7
[2024-07-10] MEDS: PANTOPRAZOLE 40 MG/10 ML VIAL IVP SCH (08:45)
[2024-07-10] MEDS: FAMOTIDINE 20 MG TAB PO SCH (08:45)
[2024-07-10 09:21] LABS: Basophils # (A) 0.01 X 10*3/uL (0.00-0.10); Basophils % (A) 0.1 %; Eosinophils # (A) 0 X 10*3/uL (0.04-0.35); Eosinophils % (A) 0 %; HCT 32.2 % (37.2-46.3); HGB 10.8 g/dL (12.0-15.0); Lymphocytes # (A) 1.07 X 10*3/uL (0.90-5.00); Lymphocytes % (A) 9.3 %; MCH 32.1 pg (27.0-32.0); MCHC 33.5 g/dL (32.0-37.0); MCV 95.8 FL (80.0-97.0); Mean Platelet Volume 11.4 FL (9.5-12.2); Monocytes # (A) 1.03 X 10*3/uL (0.20-1.00); NRBC Per 100 WBC 0 X 10*3/uL (0.00-0.01); Neutrophils # (A) 9.35 X 10*3/uL (1.80-7.70); Neutrophils % (A) 81.3 %; Platelet Count 149 X 10*3/uL (140-440); RBC 3.36 X 10*6/uL (4.10-5.20); RDW 13.5 % (11.5-14.5)
--- NOTE | 2024-07-10 09:25 | P.DS ---
Providers Date of admission: 07/09/2024 Expected date of discharge: 07/10/24 Attending physician: Ricky Sales Consults: 07/09/24 11:13 Consult Physician Routine Consulting Provider: Michael Salas Reason/Comments: Medical management Do you want consulting provider notified?: Yes Primary care physician: Tasia Arzate Hospital Course: Date of admission: 07/09/2024 Date of discharge: 07/10/2024 Admission diagnosis: Right hip osteoarthritis Discharge diagnosis: Same Attending physician: Dr. Sales Surgical procedures: Direct anterior right total hip arthroplasty Brief history: Patient is a 74-year-old female with a history of progressive primary right hip osteoarthritis. At this point patient has failed conservative treatment measures and has opted to proceed with a elective direct anterior right total hip arthroplasty. Hospital course: Details of patient's surgery can be found in operative report. Patient tolerated the procedure well and was subsequently transported to orthopedic floor. Patient's orthopeidc and medical care was provided daily. Patient had daily laboratory tests performed for evaluation of overall blood counts. Patient had daily physical therapy to include strengthening range of motion as well as education with walker ambulation. Patient was treated with aspirin for their postoperative DVT prophylaxis during their inpatient stay. Patient was noted to have a relatively uneventful postoperative course. Patient reported satisfactory pain control with oral pain medications by postoperative day 1. Patient showed satisfactory progress with physical therapy. Patient moved steadily through the program and had no difficulty meeting the goals by postoperative day 1. Given patient's otherwise satisfactory course and having met physical therapy goals, plan is to discharge patient home with health services on postoperative day 1. Discharge condition/disposition: Patient will be discharged home with health services in stable condition. Discharge medications: Instructions are given on resumption of patient's normal daily medications per primary care recommendation, in addition patient will be prescribed tramadol; senna; aspirin 81 mg twice daily x 30 days. Discharge instructions: 1. Wound care and infection precautions, keep incision dry and covered while showering, no lotions, creams, moisturizers. No soaking, tubs, pools, hottubs. Do not scrub over the incision. 2. Weight-bear as tolerated with walker / cane until follow-up. 3. Ice and elevate when necessary. Do not exceed 20 minutes per hour with ice pack. 4. Utilize compression sleeve until seen at first follow up appointment. 5. Visiting nursing care. 6. Home physical therapy. 7. Pain meds and anticoagulants per prescription. 8. Pain medication has potential to cause constipation. Increase oral fluid and fiber intake. Contact primary care provider if you have not had a bowel movement within 48 hours after discharge 9. No anti-inflammatory medication until discussed at first post operative visit, this including Motrin, Aleve, Mobic, Diclofenac. 10. Follow up in office at 2 weeks postop with Dave Ha PA-C / Alan Asher PA-C 11. Follow up with your primary care doctor 7-10 days after discharge. 12. Contact [facility] with any questions, . Assessment: Right hip osteoarthritis Procedures: Direct anterior right total hip arthroplasty Patient Condition at Discharge: Good Plan - Discharge Summary Discharge Rx Participant: Yes New Discharge Prescriptions: New traMADol HCL 50 mg PO Q6H #28 tab Aspirin [Adult Low Dose Aspirin EC] 81 mg PO BID #60 tab Sennosides/Docusate Sodium [Senna Plus 8.6-50 mg Softgel] 1 each PO DAILY #20 capsule No Action Multivitamins, Thera [Multivitamin (formulary)] 1 tab PO DAILY Ibuprofen [Advil] 200 - 400 mg PO Q6HR PRN PRN Reason: Pain Cholecalciferol [Vitamin D3 (25 Mcg = 1000 Iu)] 25 mcg PO DAILY Calcium Carbonate [Calcium] 600 mg PO DAILY Discharge Medication List Cholecalciferol [Vitamin D3 (25 Mcg = 1000 Iu)] 25 mcg PO DAILY 05/08/23 [History] Multivitamins, Thera [Multivitamin (formulary)] 1 tab PO DAILY 05/08/23 [History] Calcium Carbonate [Calcium] 600 mg PO DAILY 07/02/24 [History] Ibuprofen [Advil] 200 - 400 mg PO Q6HR PRN 07/02/24 [History] Aspirin [Adult Low Dose Aspirin EC] 81 mg PO BID #60 tab 07/10/24 [Rx] Sennosides/Docusate Sodium [Senna Plus 8.6-50 mg Softgel] 1 each PO DAILY #20 capsule 07/10/24 [Rx] traMADol HCL 50 mg PO Q6H #28 tab 07/10/24 [Rx] Follow up Appointment(s)/Referral(s): Rosalino Ha PAC [PHYSICIAN NURSING ASSISTANT] - 2 Weeks Patient Instructions/Handouts: Anterior Hip Replacement (DC), Anterior Hip Replacement (GEN) Activity/Diet/Wound Care/Special Instructions: Orthopedic Discharge Instructions: 1. Wound care and infection precautions, keep incision dry and covered while showering, no lotions, creams, moisturizers. No soaking, pools, hot tubs. Do not scrub over incision. 2. Weight-bear as tolerated with walker / cane until follow-up. 3. Ice and elevate when necessary. Do not exceed 20 minutes per hour with ice pack. 4. Utilize compression sleeve until seen at first follow up appointment. 5. Pain meds and anticoagulants per prescription. 6. Pain medication has potential to cause constipation. Increase oral fluid and fiber intake. Contact primary care provider if you have not had a bowel movement within 48 hours after discharge. 7. No anti-inflammatory medication until discussed at first post operative visit, this including Motrin, Aleve, Mobic, Diclofenac. 8. Follow up in office at 2 weeks postop with Dave Ha PA-C / Alan Asher PA-C 9. Follow up with your primary care doctor 7-10 days after discharge. 10. Contact [facility] with any questions, . Keep incision clean, dry, intact. While showering, cover silver foam dressing with Saran wrap. Keep silver foam dressing on until , 07/16/2024. Once dressing is removed on 07/16/2024, it is okay to shower directly over the incision. Discharge Disposition: HOME WITH HOME HEALTH SERVICES
--- NOTE | 2024-07-10 09:28 | P.PN ---
Subjective Progress Note Date: 07/10/24 Principal diagnosis: Right hip osteoarthritis Patient was seen at bedside this morning sitting up in chair with dressing present over right hip. Patient says she just finished working with physical therapy and walked down the feliz and up and down steps. She says she does need a walker for home. Patient says pain is controlled with tramadol. Patient says she has urinated since surgery without issue. She says she has not had a bowel movement yet, however, she says she has been passing gas. Patient denies any other issues at this time. Objective - Vital Signs Vital signs: Vital Signs Temp 97.7 F 07/10/24 07:50 Pulse 90 07/10/24 07:50 Resp 18 07/10/24 07:50 BP 104/73 07/10/24 07:50 Pulse Ox 91 L 07/10/24 07:50 FiO2 Intake & Output 07/09/24 07/10/24 07/10/24 18:59 06:59 18:59 Intake Total 1101 1080 Output Total 645 Balance 456 1080 Weight 69.5 kg Intake: IV 1101 Oral 1080 Output: Urine 600 Estimated Blood Loss 45 Other: Voiding Method Toilet Toilet # Voids 2 - Exam Right hip: Incision is clean, dry, and intact. The exofin fusion tape is in good condition. There is minimal soft tissue swelling and ecchymosis surrounding the medial and lateral aspects of the incision. Calf is soft, no tenderness with palpation. Plantar flexion, dorsiflexion, EHL, FHL are intact. Sensory exam to light touch throughout the extremity is intact, dorsal pedis pulses 2+. - Labs CBC & Chem 7: 07/10/24 05:27 Labs: Abnormal Lab Results - Last 24 Hours (Table) 07/10/24 Range/Units 05:27 WBC 11.50 H (4.50-10.00) X 10*3/uL RBC 3.36 L (4.10-5.20) X 10*6/uL Hgb 10.8 L (12.0-15.0) g/dL Hct 32.2 L (37.2-46.3) % MCH 32.1 H (27.0-32.0) pg Neutrophils # 9.35 H (1.80-7.70) X 10*3/uL Monocytes # 1.03 H (0.20-1.00) X 10*3/uL Eosinophils # 0 L (0.04-0.35) X 10*3/uL Assessment and Plan Assessment: 1. Right hip osteoarthritis -Postop day 1 status post direct anterior right total hip arthroplasty Plan: 1. Right hip osteoarthritis -direct anterior right total hip arthroplasty performed yesterday, , 07/09/2024. Patient stable bedside this morning. Patient did well with therapy this morning. Prescription for walker signed. Discharge home today with health services. 2. Appreciate medical management 3. Pain management -tramadol 4. GI prophylaxis - senna 5. DVT prophylaxis -aspirin 81 mg twice daily x 2 weeks once home 6. PT/OT - weight-bearing as tolerated with walker 7. Encourage incentive spirometer use 8. Discharge planning -home to day with health services Time with Patient: Less than 30
--- NOTE | 2024-07-10 11:13 | P.CONS ---
History of Present Illness - Reason for Consult Consult date: 07/10/24 Medical management Requesting physician: Ricky Sales - Chief Complaint Right hip osteoarthritis status post direct anterior right total hip arthro - History of Present Illness This is a 74-year-old female with past medical history significant for osteoarthritis, breast cancer stage I status post surgery, radiation, renal calculi, ESBL, former nicotine dependence and multiple other medical issues status post direct anterior right total hip arthroplasty secondary to right hip osteoarthritis. Tolerated procedure well. Pain controlled. Ambulated to the bathroom with assistance, tolerated exertion well. Denies lightheadedness, dizziness or focal deficits. PT/stairs pending. Denies chest pain, palpitations or shortness of breath.Maintaining O2 sats in the 90s on room air. Afebrile.VSS. Review of Systems ROS Statement: Those systems with pertinent positive or pertinent negative responses have been documented in the HPI. ROS Other: All systems not noted in ROS Statement are negative. Past Medical History Past Medical History: Cancer, Osteoarthritis (OA) Additional Past Medical History / Comment(s): Breast CA stage 1 11 yrs. ago-had surg. & radiation, kidney stones History of Any Multi-Drug Resistant Organisms: ESBL Year Discovered:: 06/12/23 MDRO Source:: Urine Past Surgical History: Breast Surgery, Orthopedic Surgery, Tubal Ligation Additional Past Surgical History / Comment(s): right breast lumpectomy, lithotripsy, CTS surg. Past Anesthesia/Blood Transfusion Reactions: No Reported Reaction, Family History of Problems w/ Anesthesia Additional Past Anesthesia/Blood Transfusion Reaction / Comm: son had trouble waking up from surg. in past Past Psychological History: No Psychological Hx Reported Smoking Status: Former smoker Past Alcohol Use History: None Reported Additional Past Alcohol Use History / Comment(s): quit smoking 2001, started in teens, 1ppd Past Drug Use History: None Reported - Past Family History Mother Family Medical History: No Reported History Medications and Allergies Home Medications Medication Instructions Recorded Confirmed Type Cholecalciferol [Vitamin D3 (25 25 mcg PO DAILY 05/08/23 07/09/24 History Mcg = 1000 Iu)] Multivitamins, Thera [Multivitamin 1 tab PO DAILY 05/08/23 07/09/24 History (formulary)] Calcium Carbonate [Calcium] 600 mg PO DAILY 07/02/24 07/09/24 History Ibuprofen [Advil] 200 - 400 mg PO Q6HR PRN 07/02/24 07/02/24 History Aspirin [Adult Low Dose Aspirin EC] 81 mg PO BID #60 tab 07/10/24 Rx Sennosides/Docusate Sodium [Senna 1 each PO DAILY #20 capsule 07/10/24 Rx Plus 8.6-50 mg Softgel] traMADol HCL 50 mg PO Q6H #28 tab 07/10/24 Rx Allergies Allergy/AdvReac Type Severity Reaction Status Date / Time latex Allergy Rash/Hives Verified 07/09/24 07:53 hydrocodone AdvReac Nausea & Verified 07/09/24 07:53 Vomiting Physical Exam Vitals: Vital Signs Temp Pulse Resp BP Pulse Ox 07/10/24 02:03 98.1 F 83 15 100/60 92 L 07/09/24 19:47 98.3 F 98 17 116/64 93 L 07/09/24 14:00 97.6 F 77 18 134/68 94 L 07/09/24 12:30 75 16 113/56 98 07/09/24 12:12 64 16 110/63 99 07/09/24 11:57 74 16 102/49 99 07/09/24 11:42 70 16 100/46 100 07/09/24 11:27 97.5 F L 91 16 91/53 91 L 07/09/24 09:25 69 14 123/73 98 07/09/24 09:18 63 14 144/86 98 07/09/24 08:15 97.9 F 64 18 154/68 96 Intake and Output 07/09/24 07/10/24 07/10/24 22:59 06:59 14:59 Intake Total 1080 Balance 1080 Intake: Oral 1080 Other: Voiding Method Toilet # Voids 2 PHYSICAL EXAM: VITAL SIGNS: [Reviewed] GENERAL: Pleasant, alert and oriented x 3, sitting up in chair, no acute distress HEENT: Normocephalic, atraumatic, conjunctivae normal. eyes normal. MMM. NECK: Supple, no JVD. CARDIOVASCULAR: S1, S2 regular. No murmur RESPIRATION: Unlabored, equal air entry, clear to auscultation . ABDOMEN: Soft, nontender . No guarding. No masses appreciated,+BS. LEGS: Right lower extremity dressing clean dry and intact, minimal edema, no calf tenderness, positive DP pulse. PSYCHIATRY: Alert and oriented X3, mood and affect normal. NERVOUS SYSTEM: Cranial N 2-12 grossly normal. No focal deficits. Strength and sensation grossly intact. Skin: no lesions,fungal rash near dressing-tape. Lymphatic system. No LN neck axilla or groin. Results CBC & Chem 7: 07/10/24 05:27 Assessment and Plan Assessment: Right hip osteoarthritis status post direct anterior right total hip arthroplasty Prior nicotine dependence History of breast CVA stage I, status post surgery and radiation Obesity, BMI 31 Fungal, candidiasis rash near tape of dressing, Diflucan ordered Plan: Continue on current medication resume ,monitoring and symptomatic treatment. Pain management and DVT prophylaxis as per primary. Aggressive pulmonary toileting with incentive spirometer reinforced. PPI ordered for GI prophylaxis. PT pending. Follow-up with PCP in 1 week. Thank you for the consult. The impression and plan of care has been dictated as directed. : I performed a history and examination of this patient, discussed the same with the dictator. I agree with the dictator's note ,documented as a scribe. Any additional findings or plans will be noted.
[2024-07-10] MEDS ORDERED: FLUCONAZOLE 100 MG TAB PO SCH (11:15)
== END 2024-07-10 11:32 | disposition home health service (06) ==
LOC: OR 07:19 → 4SSUR 12:41 → OR 07-10 11:32
PROVIDERS: ATTEND Orthopaedic Surgery
DX: M16.11 Unilateral primary osteoarthritis, right hip
CPT/HCPCS: 64447; 73501; 85025

== ENCOUNTER 2025-03-31 05:34 | Day surgery (SDC) | payer MEDICARE ==
[2025-03-26 10:03] VITALS: BMI 31.5
--- NOTE | 2025-03-30 14:47 | HP ---
HISTORY AND PHYSICAL DATE OF SURGERY: 03/31/2025. HISTORY OF PRESENT ILLNESS: Ana Rebolledo is a 74-year-old patient, seen with symptomatic right knee osteoarthritis. After having treatment options discussed, she elected to proceed with right total knee arthroplasty. Consent regarding the procedure was obtained. Preoperative medical clearance was obtained. PAST MEDICAL HISTORY: Noncontributory. SURGICAL HISTORY: Tubal ligation, carpal tunnel release. DAILY MEDICATIONS: 1. Motrin. 2. Multivitamin. 3. Tramadol. ALLERGIES: [place]. SOCIAL HISTORY: She denies current tobacco use. PHYSICAL EVALUATION OF THE RIGHT KNEE: Her range of motion is -5/6 to 110 degrees. She has a mild effusion. Tenderness on the lateral joint line. Crepitance along the lateral patellofemoral compartments. Ligaments stable. Hip rotation without pain. Distal neurovascular exam intact. DIAGNOSTIC DATA: Right knee radiographs revealed severe osteoarthritis. IMPRESSION: Right knee osteoarthritis. PLAN: Right total knee arthroplasty. Surgery is scheduled for 03/31/2025. MMODL / IJN: [id number] /
[~2025-03-31 05:34] MED LIST changes: -HYDROmorphone 0.5 MG/0.5 ML SYRINGE IVP PRN; -LIDOCAINE 1% (10MG/ML) FOR IV START INTRADERMA PRN; -MIDAZOLAM 2 MG/2 ML VIAL IV PRN; -fentaNYL (PF) 50 MCG/ML 2 ML AMP IVP PRN
[2025-03-31] MEDS: IV FLUID CONTINUATION 1,000 ML IV ONE (06:14)
[2025-03-31] MEDS: LACTATED RINGERS 1,000 ML IV SCH (06:51)
[2025-03-31] MEDS: MELOXICAM 7.5 MG TAB PO PRN (06:53)
[2025-03-31] MEDS: DEXAMETHASONE SOD PHOSPHATE 4 MG/ML 1 ML VIAL IV ONE (06:53)
[2025-03-31] MEDS: ONDANSETRON 4 MG/2 ML VIAL IVP ONE (06:53)
[2025-03-31] MEDS: ACETAMINOPHEN TAB 500 MG TAB PO PRN (06:53)
[2025-03-31] MEDS ORDERED: HYDROmorphone 0.5 MG/0.5 ML SYRINGE IVP PRN ×4 (07:00→09:16)
[2025-03-31] MEDS: fentaNYL (PF) 50 MCG/ML 2 ML AMP IVP STA (07:10)
[2025-03-31] MEDS: MIDAZOLAM 2 MG/2 ML VIAL IV PRN (07:10)
[2025-03-31] MEDS ORDERED: MIDAZOLAM 2 MG/2 ML VIAL ONE (07:25)
[2025-03-31] MEDS ORDERED: PROPOFOL 10 MG/ML 20 ML VIAL IV ONE (07:25)
[2025-03-31] MEDS ORDERED: ROPIVACAINE 5 MG/ML 30 ML VIAL ONE (07:25)
[2025-03-31] MEDS ORDERED: diphenhydrAMINE 50 MG/ML 1 ML VIAL ONE (07:25)
[2025-03-31] MEDS ORDERED: SODIUM CHLORIDE 0.9% (PF) 10 ML VIAL ONE (07:25)
[2025-03-31] MEDS ORDERED: DEXAMETHASONE SOD PHOSPHATE 4 MG/ML 1 ML VIAL ONE (07:25)
[2025-03-31] MEDS ORDERED: GLYCOPYRROLATE 0.2 MG/ML 2 ML VIAL ONE (07:25)
[2025-03-31] MEDS ORDERED: TRANEXAMIC 1,000 MG/100ML-NACL PREMIX BAG ONE (07:25)
[2025-03-31] MEDS ORDERED: fentaNYL (PF) 50 MCG/ML 2 ML AMP ONE (07:25)
[2025-03-31] MEDS: ceFAZolin 1,000 MG in SODIUM CHLORIDE 0.9% 1,000 ML IRRIGATION ONE (08:09)
[2025-03-31] MEDS ORDERED: ONDANSETRON 4 MG/2 ML VIAL IVP PRN (09:16)
[2025-03-31] MEDS ORDERED: NALOXONE 0.4 MG/ML 1 ML VIAL IV PRN (09:16)
--- NOTE | 2025-03-31 09:16 | P.OP ---
Date of Procedure: 03/31/25 Preoperative Diagnosis: Right knee osteoarthritis Postoperative Diagnosis: Right knee osteoarthritis Procedure(s) Performed: Right total knee arthroplasty Implants: 1. DePuy attune size 4 right retaining cemented femur 2. DePuy attune size 4 fixed-bearing cemented tibial baseplate 3. DePuy attune size 4 fixed-bearing cruciate retaining 7 mm polyethylene tibial insert 4. DePuy attune 38 mm all polyethylene cemented patella Anesthesia: regional (Adductor canal catheter, iPAQ block), spinal Surgeon: Ricky Sales Residence Director #1: Rosalino Ha Estimated Blood Loss (ml): 40 Pathology: none sent Condition: stable Disposition: PACU Indications for Procedure: 74-year-old patient seen with symptomatic right knee osteoarthritis. After having treatment options discussed, she elected to proceed with total knee arthroplasty. Operative Findings: See description of procedure Description of Procedure: Patient was taken to the operative suite after having an adductor canal catheter placed by the department of anesthesia. Patient underwent a spinal anesthetic by the department of anesthesia. Patient was given preoperative IV intake antibiotics and TXA. A well-padded tourniquet was placed about the right lower extremity. The lower extremity was then prepped and draped in the normal sterile orthopedic fashion. The extremity was elevated, a tourniquet was insu fflated to 300. A standard anterior incision was made sharply through skin. Dissection was taken down through the subcutaneous soft tissues down to the extensor mechanism. A medial arthrotomy was performed, patella was everted and knee was flexed. There was advanced osteoarthritis noted. I introduced my distal intramedullary femoral drill. I then introduced the distal femoral cutting jig. Dave MIR secured the cutting jig with 2 pins. I held retractors in position while Dave MIR performed the distal femoral resection through the guide area we now removed her distal femoral cutting guide. We now placed our 4-in-1 femoral cutting block and positioned and it was secured with 2 pins by Dave MIR while I held the block in position. The distal femoral finishing was now completed. A proximal tibial cutting guide was positioned. I held the guide in the appropriate position with both hands well Dave MIR inserted stabilizing pins into the guide. Proximal tibial cut was made. We now placed a trial femoral component into position, along with an appropriate size tibial tray and insert. We now took the knee through range of motion and had full extension good flexion and good overall soft tissue balance noted. The patella was everted and stabilized with 2 towel clips held by Dave IMR while I performed a flush with patellar quad tendon utilizing a fresh sawblade. We templated the patella, appropriate drill holes were made. An appropriate trial patella was positioned, knee was taken through full range of motion with the patella tracking very nicely. The trial patella was removed. Drill holes were made through the femoral component. All trial components were removed after marking off the appropriate rotation of the tibia. Retractors were now positioned along the proximal tibia. An appropriate keel punch was made with the appropriate size tibial guide by myself on Dave MIR assisted by holding retractors. At this point appropriate size implants were chosen and opened. The joint was irrigated copiously with pulse lavage mechanical irrigation. The wound was irrigated with pulse lavage mechanical irrigation. We mixed antibiotic methylmethacrylate. We placed the knee into flexion. We placed multiple retractors assisted by Dave MIR to expose the proximal tibia. Once the methyl methacrylate was ready, the tibial component was cemented into place removing any excess methylmethacrylate form by both myself and Dave MIR. The femoral component was cemented into place removing the removing any excess methylmethacrylate performed by both myself and Dave MIR. We then inserted the appropriate size polyethylene tibial insert. We made sure that it was locked into position. We took the knee into full extension, and then back in a flexion making sure we had removed any excess methylmethacrylate. The patellar component was then cemented down and secured with clamp. Excess methylmethacrylate removed. We kept the knee in full extension, patellar clamp in position until methylmethacrylate had hardened. Once it had hardened the patellar clamp was removed. The knee was taken through full range of motion. The patella tracked nicely. There was good soft tissue balancing. The tourniquet was now released. Additional hemostasis was achieved via electrocautery. A second gram of TXA was given. The wound again was irrigated with pulse lavage mechanical irrigation. The extensor mechanism was repaired with Ethibond suture. We checked the repair with range of motion and it was stable. The subcutaneous soft tissues were repaired with Vicryl in layers. The skin was approximated with pernio/Dermabond. Sterile dressings were applied followed by loose web roll and Ramirez bandage. The patient was transferred to a bed, and taken to recovery in stable and satisfactory condition. Dave MIR assisted with this complex procedure.
[2025-03-31] MEDS: ROPIVACAINE 1,100 MG, SODIUM CHLORIDE 0.9% 500 ML 330 ML, EMPTY PAIN BALL 1 EACH MISCELLANE PRN (09:51)
--- NOTE | 2025-03-31 10:15 | P.ANPRN ---
Procedure Note - Anesthesia - Nerve Block Performed Right Adductor Canal Infusion Time Out Performed: Yes (0710) Date of Procedure: 03/31/25 Procedure Start Time: 07:11 Procedure Stop Time: 07:16 Location of Patient: PreOp Indication: Acute Post-Operative Pain, Requested by Surgeon Specifically requested for management of pain by DrOz: Ricky Sales Sedation Type: Sedate with meaningful contact maintained Preparation: Sterile Prep, Sterile Dressing Position: Supine Catheter Depth at Skin (cm): 9 Catheter: Indwelling Needle Types: Pajunk Needle Gauge: 18 Ultrasound used to visualize needle placement: Yes Ultrasound used to observe medication spread: Yes Injectate: 0.5% Ropivacaine (see comment for volume) (15cc+decadron 4mg+nacl pf 10cc) Blood Aspirated: No Pain Paresthesia on Injection Noted: No Resistance on Injection: Normal Image Stored and Saved: Yes Events: Uneventful and Well Tolerated
--- NOTE | 2025-03-31 10:16 | P.ANPRN ---
Procedure Note - Anesthesia - Nerve Block Performed Right iPack Single Time Out Performed: Yes (0710) Date of Procedure: 03/31/25 Procedure Start Time: :17 Procedure Stop Time: :21 Location of Patient: PreOp Indication: Acute Post-Operative Pain, Requested by Surgeon Specifically requested for management of pain by DrOz: Ricky Sales Sedation Type: Sedate with meaningful contact maintained Preparation: Sterile Prep Position: Supine Catheter: None Needle Types: Pajunk Needle Gauge: 21 Ultrasound used to visualize needle placement: Yes Ultrasound used to observe medication spread: Yes Injectate: 0.5% Ropivacaine (see comment for volume) (15cc+decadron 4mg+nacl pf 10cc) Blood Aspirated: No Pain Paresthesia on Injection Noted: No Resistance on Injection: Normal Image Stored and Saved: Yes Events: Uneventful and Well Tolerated
[2025-03-31] MEDS: HYDROcodone/APAP 7.5-325MG 1 EACH TAB PO PRN (11:31)
[2025-03-31] MEDS: SODIUM CHLORIDE 0.9% 1,000 ML IV SCH (14:08)
--- NOTE | 2025-03-31 16:31 | XR ---
EXAMINATION TYPE: XR knee limited RT DATE OF EXAM: 03/31/2025 3:31 PM COMPARISON: None. CLINICAL INDICATION: Female, 74 years old with history of Evaluation for Postop abnormality and align ment, pain TECHNIQUE: 2 view(s) obtained. FINDINGS: Tibial and femoral components of the place. Postsurgical soft tissue changes are present. No joint ef fusion is evident. IMPRESSION: 1. No acute fracture post right knee replacement [facility], , 03/31/2025 4:29 PM
[2025-03-31 20:42] VITALS: RESP 16
[2025-03-31] MEDS: SENNOSIDES-DOCUSATE SODIUM 1 EACH TAB PO SCH (21:43)
[2025-03-31] MEDS: ASPIRIN 81 MG PO SCH (21:43)
--- NOTE | 2025-04-01 05:28 | P.CONS ---
History of Present Illness - Reason for Consult Consult date: 03/31/25 Medical management, status post right knee arthroplasty - History of Present Illness This is a pleasant 74-year-old female who was admitted under orthopedics and is status post right knee arthroplasty. Patient reports she follows with Dr. Montalvo in the outpatient setting with a past medical history of previous GI bleeds, osteoarthritis, right breast cancer, former smoker and denies any illicit drug use or alcohol use. Patient did undergo presurgical clearance and is postop day 0 and has just returned from postoperative care. Patient is currently alert and oriented x 3 with no reports of chest pain or shortness of breath. Patient is reporting some mild right knee tenderness and will be awaiting to work with PT/OT therapy. Recommend basic labs in the a.m. and will follow-up and replace electrolytes per protocol. Pain management and DVT prophylaxis per orthopedics. REVIEW OF SYSTEMS: CONSTITUTIONAL: No fever, no malaise, no fatigue. HEENT: No recent visual problems or hearing problems. Denied any sore throat. CARDIOVASCULAR: No chest pain, orthopnea, PND, no palpitations, no syncope. PULMONARY: No shortness of breath, no cough, no hemoptysis. GASTROINTESTINAL: No diarrhea, no nausea, no vomiting, no abdominal pain. NEUROLOGICAL: No headaches, no weakness, no numbness. HEMATOLOGICAL: Denies any bleeding or petechiae. GENITOURINARY: Denies any burning micturition, frequency, or urgency. MUSCULOSKELETAL/RHEUMATOLOGICAL: Reports some right knee discomfort ENDOCRINE: Denies any polyuria or polydipsia. The rest of the 14-point review of systems is negative. PHYSICAL EXAMINATION: GENERAL: The patient is alert and oriented x3, not in any acute distress. Well developed, elderly appearing, obese HEENT: Pupils are round and equally reacting to light. EOMI. No scleral icterus. No conjunctival pallor. Normocephalic, atraumatic. No pharyngeal erythema. No thyromegaly. CARDIOVASCULAR: S1 and S2 muffled PULMONARY: Diminished breath sounds bilaterally otherwise chest is clear to aus cultation, no wheezing or crackles. ABDOMEN: Soft, nontender, nondistended, normoactive bowel sounds. No palpable organomegaly. MUSCULOSKELETAL: No joint swelling or deformity. EXTREMITIES: No cyanosis, clubbing, or pedal edema. Right knee surgical dressing is dry and intact NEUROLOGICAL: Gross neurological examination did not reveal any focal deficits. Diffusely weak SKIN: No rashes. Assessment: Status post right total knee arthroplasty today 03/31/2025 History of osteoarthritis History of right breast cancer Obesity with a BMI 33.1 GI prophylaxis DVT prophylax No code Plan: Patient is admitted under orthopedics, status post right knee arthroplasty today. Will be awaiting PT/OT therapy evaluation in the a.m. Encouraged oral intake and continued supportive care, as needed Zofran needed Recommend incentive spirometer use at least 10 times every hour while awake Home medications will be reviewed and resumed as appropriate Recommend basic labs in the a.m. and will replace electrolytes per protocol Thank you kindly for this consultation. Will continue to follow with orthopedics during hospitalization The impression and plan of care has been dictated by Jennifer Haas, Nurse Practitioner as directed. Dr. Michelle MD I have performed a history and examination and MDM of this patient, discussed the same with the dictator, and agree with the dictator's assessment and plan as written ,documented as a scribe. Based on total visit time, I have performed more than 50% of the visit. Past Medical History Past Medical History: Cancer, GI Bleed, Osteoarthritis (OA) Additional Past Medical History / Comment(s): Hx right breast cancer 13 yrs ago with lumpectomy and radiation. Hx bleeding ulcer few yrs ago. History of Any Multi-Drug Resistant Organisms: None Reported, ESBL Year Discovered:: 06/12/23 MDRO Source:: Urine Past Surgical History: Appendectomy, Breast Surgery, Joint Replacement, Tubal Ligation Additional Past Surgical History / Comment(s): Right breast lumpectomy, bleeding ulcer cauterized, right hip replacement. Past Anesthesia/Blood Transfusion Reactions: No Reported Reaction Additional Past Anesthesia/Blood Transfusion Reaction / Comm: No hx blood transfusion. Past Psychological History: No Psychological Hx Reported Smoking Status: Former smoker Past Alcohol Use History: None Reported Additional Past Alcohol Use History / Comment(s): Started smoking at age 16 and quit in 2001. Past Drug Use History: None Reported - Past Family History Mother Family Medical History: No Reported History Medications and Allergies Home Medications Medication Instructions Recorded Confirmed Type Cholecalciferol [Vitamin D3 (25 25 mcg PO DAILY 05/08/23 03/26/25 History Mcg = 1000 Iu)] Multivitamins, Thera [Multivitamin 1 tab PO DAILY 05/08/23 03/26/25 History (formulary)] Calcium Carbonate [Calcium] 600 mg PO DAILY 07/02/24 03/26/25 History Allergies Allergy/AdvReac Type Severity Reaction Status Date / Time No Known Allergies Allergy Verified 03/31/25 06:25 Physical Exam Vitals: Vital Signs Temp Pulse Pulse Resp BP Pulse Ox 03/31/25 14:16 97.8 F 67 15 135/73 94 L 03/31/25 10:00 72 16 99/46 95 03/31/25 09:45 75 16 105/37 100 03/31/25 09:32 97.5 F L 69 16 94/56 96 03/31/25 07:15 64 12 122/64 94 L 03/31/25 06:14 98.0 F 63 14 127/70 95 Intake and Output 03/31/25 03/31/25 03/31/25 06:59 14:59 22:59 Intake Total 200 651 Output Total 40 Balance 200 611 Intake: IV 200 651 Output: Estimated Blood Loss 40 Other: Weight 74.3 kg 74.3 kg
[2025-04-01 07:55] LABS: Basophils # (A) 0.02 X 10*3/uL (0.00-0.10); Basophils % (A) 0.2 %; Eosinophils # (A) 0 X 10*3/uL (0.04-0.35); Eosinophils % (A) 0 %; HCT 36.7 % (37.2-46.3); HGB 11.8 g/dL (12.0-15.0); Lymphocytes # (A) 0.97 X 10*3/uL (0.90-5.00); Lymphocytes % (A) 7.4 %; MCH 31.3 pg (27.0-32.0); MCHC 32.2 g/dL (32.0-37.0); MCV 97.3 FL (80.0-97.0); Mean Platelet Volume 11.3 FL (9.5-12.2); Monocytes # (A) 1.08 X 10*3/uL (0.20-1.00); Monocytes % (A) 8.3 %; NRBC Per 100 WBC 0 X 10*3/uL (0.00-0.01); Neutrophils # (A) 10.94 X 10*3/uL (1.80-7.70); Neutrophils % (A) 83.6 %; Platelet Count 161 X 10*3/uL (140-440); RBC 3.77 X 10*6/uL (4.10-5.20); RDW 12.9 % (11.5-14.5); WBC 13.08 X 10*3/uL (4.50-10.00)
--- NOTE | 2025-04-01 07:55 | P.PN ---
Progress Note - Text Progress Note Date: 04/01/25 (650) Anesthesiology Postop day 1 status post total knee arthroplasty with adductor canal catheter. Patient doing well. VAS 2 out of 10. Gross strength intact in lower extremity. Afebrile. Denies alterations in sensorium. Catheter site intact. Heart regular rate Lungs nonlabored Abdomen nondistended Assessment: Postop day 1 status post total knee arthroplasty with adductor canal catheter Plan: 1.All questions answered. Maintain catheter 2 more days with patient removal at home. Instructions to be given at discharge. 2.This note was dictated using [employer] software. Please be advised there is a potential for misspellings or errors in music manager.
[2025-04-01] MEDS: CHOLECALCIFEROL 25 MCG (1000 IU) TABLET PO SCH (08:23)
[2025-04-01] MEDS: HYDROcodone/APAP 5-325MG 1 EACH TAB PO PRN (08:23)
[2025-04-01] MEDS: CALCIUM CARBONATE 500 MG CHEWABLE PO SCH (08:23)
[2025-04-01] MEDS: MULTIVITAMINS, THERA 1 EACH TAB PO SCH (08:23)
[2025-04-01 08:44] LABS: ALT 17 U/L (8-44); AST 25 U/L (13-35); Albumin 3.2 g/dL (3.8-4.9); Albumin/Globulin Ratio 1.28 Ratio (1.60-3.17); Alkaline Phosphatase 52 U/L (41-126); BUN/Creat Ratio 19.38 Ratio (12.00-20.00); Blood Urea Nitrogen 25.2 mg/dL (9.0-27.0); Calcium 8.1 mg/dL (8.7-10.3); Carbon Dioxide 23.3 mmol/L (21.6-31.8); Chloride 107 mmol/L (96-109); Globulin 2.5 g/dL (1.6-3.3); Glucose 127 mg/dL (70-110); Magnesium 2.1 mg/dL (1.5-2.4); Potassium 5.2 mmol/L (3.5-5.5); Sodium 139 mmol/L (135-145); Total Bilirubin 0.2 mg/dL (0.3-1.2); Total Protein 5.7 g/dL (6.2-8.2)
[2025-04-01 09:34] VITALS: BP 111/68; PULSE 68; TEMP 98.4
[2025-04-01] MEDS ORDERED: ACETAMINOPHEN TAB 325 MG TAB PO PRN (09:44)
--- NOTE | 2025-04-01 11:47 | P.PN ---
Subjective Progress Note Date: 04/01/25 Principal diagnosis: Status post right total knee arthroplasty Patient was evaluated at bedside today, she is resting up in her hospital chair. She did very well with physical therapy ambulating and doing the stairs. She did use the walker with no issues. She has been urinating with no issues since surgery. Her pain is well-controlled. She denies headaches, lightheadedness, chest pain or shortness of breath Objective - Vital Signs Vital signs: Vital Signs Temp 98.4 F 04/01/25 08:00 Pulse 68 04/01/25 08:00 Resp 16 04/01/25 08:00 BP 111/68 04/01/25 08:00 Pulse Ox 90 L 04/01/25 08:00 FiO2 Intake & Output 03/31/25 04/01/25 04/01/25 18:59 06:59 18:59 Intake Total 651 Output Total 40 Balance 611 Weight 74.3 kg Intake: IV 651 Output: Estimated Blood Loss 40 Other: # Voids 1 - Exam Right lower extremity: Incision is clean, dry, and intact. The foam dressing is in good condition. There is minimal soft tissue swelling and ecchymosis surrounding the medial and lateral aspects of the incision. Calf is soft, no tenderness with palpation. Plantar flexion, dorsiflexion, EHL, FHL are intact. Sensory exam to light touch throughout the extremity is intact, dorsal pedis pulses 2+. - Labs CBC & Chem 7: 04/01/25 03:42 04/01/25 03:42 Labs: Abnormal Lab Results - Last 24 Hours (Table) 04/01/25 04/01/25 Range/Units 03:42 03:42 WBC 13.08 H (4.50-10.00) X 10*3/uL RBC 3.77 L (4.10-5.20) X 10*6/uL Hgb 11.8 L (12.0-15.0) g/dL Hct 36.7 L (37.2-46.3) % MCV 97.3 H (80.0-97.0) FL Immature Gran # 0.07 H (0.00-0.04) X 10*3/uL Neutrophils # 10.94 H (1.80-7.70) X 10*3/uL Monocytes # 1.08 H (0.20-1.00) X 10*3/uL Eosinophils # 0 L (0.04-0.35) X 10*3/uL Est GFR (CKD-EPI) 43 L (>=60) Glucose 127 H (70-110) mg/dL Calcium 8.1 L (8.7-10.3) mg/dL Total Bilirubin 0.2 L (0.3-1.2) mg/dL Total Protein 5.7 L (6.2-8.2) g/dL Albumin 3.2 L (3.8-4.9) g/dL Albumin/Globulin Ratio 1.28 L (1.60-3.17) Ratio Assessment and Plan Assessment: Postoperative day #1 status post right total knee arthroplasty Plan: Pain control, plan for discharge home on oral medications DVT prophylaxis, aspirin 81 mg twice a day for 30 days Wound care instructions were discussed, this to include use of the On-Q pain catheter and removal, icing and elevating, bandage instructions along with showering PT/nursing after discharge for home Medical recommendations are appreciated Discharge planning: Patient stable for discharge home today Time with Patient: Less than 30
--- NOTE | 2025-04-01 11:50 | P.DS ---
Providers Date of admission: 03/31/2025 Expected date of discharge: 04/01/25 Attending physician: Ricky Sales Consults: 03/31/25 09:16 Consult Physician Routine Consulting Provider: Luan Saldana Consult Reason/Comments: Medical management Do you want consulting provider notified?: Yes Primary care physician: Tasia Arzate Hospital Course: Date of admission: 03/31/2025 Date of discharge: 04/01/2025 Admission diagnosis: Status post right total knee arthroplasty Discharge diagnosis: Same Attending physician: Dr. Sales Surgical procedures: Right total knee arthroplasty Brief history: Patient is a 74-year-old with a history of progressive primary right knee osteoarthritis. At this point patient has failed conservative treatment measures and has opted to proceed with a elective right total knee arthroplasty. Hospital course: Details of patient's surgery can be found in operative report. Patient tolerated the procedure well and was subsequently transported to orthopedic floor. Patient's orthopeidc and medical care was provided daily. Patient had daily laboratory tests performed for evaluation of overall blood counts. Patient had daily physical therapy to include strengthening range of motion as well as education with walker ambulation. Patient was treated with aspirin for their postoperative DVT prophylaxis during their inpatient stay. Patient was noted to have a relatively uneventful postoperative course. Patient reported satisfactory pain control with oral pain medications by postoperative day 0. Patient showed satisfactory progress with physical therapy. Patient moved steadily through the program and had no difficulty meeting the goals by postoperative day 1. Given patient's otherwise satisfactory course and having met physical therapy goals, plan is to discharge patient home on postoperative day 1. Discharge condition/disposition: Patient will be discharged home in stable condition. Discharge medications: Instructions are given on resumption of patient's normal daily medications per primary care recommendation, in addition patient will be prescribed [place] 7.5 mg / 325 mg, senna S, aspirin 81 mg. Discharge instructions: 1. Wound care and infection precautions, keep incision dry and covered while showering, no lotions, creams, moisturizers. No soaking, tubs, pools, hottubs. Do not scrub over the incision. 2. Weight-bear as tolerated with walker / cane until follow-up. 3. Ice and elevate when necessary. Do not exceed 20 minutes per hour with ice pack. 4. Utilize compression sleeve until seen at first follow up appointment. 5. Visiting nursing care. 6. Home physical therapy including home CPM. 7. Pain meds and anticoagulants per prescription. 8. Pain medication has potential to cause constipation. Increase oral fluid and fiber intake. Contact primary care provider if you have not had a bowel movement within 48 hours after discharge 9. No anti-inflammatory medication until discussed at first post operative visit, this including Motrin, Aleve, Mobic, Diclofenac. 10. Follow up in office at 2 weeks postop with Dave Ha PA-C/Alan Rodriguez 11. Follow up with your primary care doctor 7-10 days after discharge. 12. Contact [facility] with any questions, . Procedures: Right total knee arthroplasty Patient Condition at Discharge: Good Plan - Discharge Summary Discharge Rx Participant: Yes New Discharge Prescriptions: New HYDROcodone/APAP 7.5-325MG [[place] 7.5] 1 each PO Q4HR PRN #42 tab PRN Reason: Pain Sennosides/Docusate Sodium [Senna-S 8.6-50 mg Tablet] 2 each PO DAILY PRN #30 tablet PRN Reason: Constipation Aspirin [Adult Low Dose Aspirin EC] 81 mg PO BID #60 tab No Action Multivitamins, Thera [Multivitamin (formulary)] 1 tab PO DAILY Cholecalciferol [Vitamin D3 (25 Mcg = 1000 Iu)] 25 mcg PO DAILY Calcium Carbonate [Calcium] 600 mg PO DAILY Discharge Medication List Cholecalciferol [Vitamin D3 (25 Mcg = 1000 Iu)] 25 mcg PO DAILY 05/08/23 [History] Multivitamins, Thera [Multivitamin (formulary)] 1 tab PO DAILY 05/08/23 [History] Calcium Carbonate [Calcium] 600 mg PO DAILY 07/02/24 [History] Aspirin [Adult Low Dose Aspirin EC] 81 mg PO BID #60 tab 04/01/25 [Rx] HYDROcodone/APAP 7.5-325MG [[place] 7.5] 1 each PO Q4HR PRN #42 tab 04/01/25 [Rx] Sennosides/Docusate Sodium [Senna-S 8.6-50 mg Tablet] 2 each PO DAILY PRN #30 tablet 04/01/25 [Rx] Follow up Appointment(s)/Referral(s): Rosalino Ha PAC [PHYSICIAN BUSINESS CONSULT] - 2 Weeks Activity/Diet/Wound Care/Special Instructions: Orthopedic Discharge Instructions: 1. Wound care and infection precautions, keep incision dry and covered while showering, no lotions, creams, moisturizers. No soaking, pools, hot tubs. Do not scrub over incision. 2. Weight-bear as tolerated with walker / cane until follow-up. 3. Ice and elevate when necessary. Do not exceed 20 minutes per hour with ice pack. 4. Utilize compression sleeve until seen at first follow up appointment. 5. Pain meds and anticoagulants per prescription. 6. Pain medication has potential to cause constipation. Increase oral fluid and fiber intake. Contact primary care provider if you have not had a bowel movement within 48 hours after discharge. 7. No anti-inflammatory medication until discussed at first post operative visit, this including Motrin, Aleve, Mobic, Diclofenac. 8. Follow up in office at 2 weeks postop with Dave Ha PA-C/Alan Asher PA-C 9. Follow up with your primary care doctor 7-10 days after discharge. 10. Contact [facility] with any questions, . Wound care instructions: 1. Okay to remove surgical dressing as of 04/10/2025 2. Okay to shower directly over the incision after removal of dressing Discharge Disposition: HOME WITH HOME HEALTH SERVICES
[2025-04-01] MEDS: PANTOPRAZOLE 40 MG TABLET PO SCH (12:05)
--- NOTE | 2025-04-02 00:26 | P.PN ---
Subjective Progress Note Date: 04/01/25 - Reason for Consult Consult date: 03/31/25 Medical management, status post right knee arthroplasty - History of Present Illness This is a pleasant 74-year-old female who was admitted under orthopedics and is status post right knee arthroplasty. Patient reports she follows with Dr. Montalvo in the outpatient setting with a past medical history of previous GI bleeds, osteoarthritis, right breast cancer, former smoker and denies any il licit drug use or alcohol use. Patient did undergo presurgical clearance and is postop day 0 and has just returned from postoperative care. Patient is currently alert and oriented x 3 with no reports of chest pain or shortness of breath. Patient is reporting some mild right knee tenderness and will be awaiting to work with PT/OT therapy. Recommend basic labs in the a.m. and will follow-up and replace electrolytes per protocol. Pain management and DVT prophylaxis per orthopedics. 04/01/2025 Patient is seen in follow-up this morning reporting doing well was able to work with physical therapy and is planning on going home. Patient is afebrile with no reports of chest pain, shortness of breath, burning or frequency with urination. White count was mildly elevated at 13, likely reactive and recommend outpatient follow-up with primary care provider for repeat labs in the next week or so. Patient encouraged to take home incentive spirometer and continue using at least 10 times every hour while awake. Continue with pain management and DVT prophylaxis per orthopedics and strongly recommend outpatient follow-up with orthopedics as scheduled. Patient will be having home care with rehab in the home. Patient is medically stable once cleared by orthopedics. Review of systems: Constitutional: No reports of fatigue, fever, or chills Cardiovascular: No reports of chest pain or palpitations Respiratory: No reports of shortness of breath or cough GI: No reports of nausea, vomiting, or diarrhea : No reports of dysuria or retention Neurovascular: No reports of weakness or numbness All medications have been reviewed PHYSICAL EXAMINATION: GENERAL: The patient is alert and oriented x3, not in any acute distress. Well developed, elderly appearing, obese HEENT: Pupils are round and equally reacting to light. EOMI. No scleral icterus. No conjunctival pallor. Normocephalic, atraumatic. No pharyngeal erythema. No thyromegaly. CARDIOVASCULAR: S1 and S2 muffled PULMONARY: Diminished breath sounds bilaterally otherwise chest is clear to auscultation, no wheezing or crackles. ABDOMEN: Soft, nontender, nondistended, normoactive bowel sounds. No palpable organomegaly. MUSCULOSKELETAL: No joint swelling or deformity. EXTREMITIES: No cyanosis, clubbing, or pedal edema. Right knee surgical dressing is dry and intact NEUROLOGICAL: Gross neurological examination did not reveal any focal deficits. Diffusely weak SKIN: No rashes. Assessment: Status post right total knee arthroplasty on 03/31/2025 Mild leukocytosis, likely reactive as patient does not appear infectious with no reports of shortness of breath, cough, or urinary discomfort History of osteoarthritis History of right breast cancer Obesity with a BMI 33.1 GI prophylaxis DVT prophylax No code Plan: Patient is admitted under orthopedics, status post right knee arthroplasty and was evaluated by physical therapy doing well and has support in the home Encouraged oral intake and continued supportive care, as needed Zofran needed Recommend incentive spirometer use at least 10 times every hour while awake, encourage patient to take home and continue using discharge Home medications will be reviewed and resumed as appropriate. Patient instructed to follow-up with primary care provider outpatient and would recommend Patient is medically stable once cleared by orthopedics for discharge home. Thank you kindly for this consultation. Will continue to follow with orthopedics during hospitalization The impression and plan of care has been dictated by Jennifer Haas, Nurse Practitioner as directed. Dr. Michelle MD I have performed a history and examination and MDM of this patient, discussed the same with the dictator, and agree with the dictator's assessment and plan as written ,documented as a scribe. Based on total visit time, I have performed more than 50% of the visit. Objective - Vital Signs Vital signs: Vital Signs Temp 98.4 F 04/01/25 08:00 Pulse 68 04/01/25 08:00 Resp 16 04/01/25 08:00 BP 111/68 04/01/25 08:00 Pulse Ox 90 L 04/01/25 08:00 FiO2 Intake & Output 03/31/25 04/01/25 04/01/25 18:59 06:59 18:59 Intake Total 651 Output Total 40 Balance 611 Weight 74.3 kg Intake: IV 651 Output: Estimated Blood Loss 40 Other: # Voids 1 - Labs CBC & Chem 7: 04/01/25 03:42 04/01/25 03:42 Labs: Abnormal Lab Results - Last 24 Hours (Table) 04/01/25 04/01/25 Range/Units 03:42 03:42 WBC 13.08 H (4.50-10.00) X 10*3/uL RBC 3.77 L (4.10-5.20) X 10*6/uL Hgb 11.8 L (12.0-15.0) g/dL Hct 36.7 L (37.2-46.3) % MCV 97.3 H (80.0-97.0) FL Immature Gran # 0.07 H (0.00-0.04) X 10*3/uL Neutrophils # 10.94 H (1.80-7.70) X 10*3/uL Monocytes # 1.08 H (0.20-1.00) X 10*3/uL Eosinophils # 0 L (0.04-0.35) X 10*3/uL Est GFR (CKD-EPI) 43 L (>=60) Glucose 127 H (70-110) mg/dL Calcium 8.1 L (8.7-10.3) mg/dL Total Bilirubin 0.2 L (0.3-1.2) mg/dL Total Protein 5.7 L (6.2-8.2) g/dL Albumin 3.2 L (3.8-4.9) g/dL Albumin/Globulin Ratio 1.28 L (1.60-3.17) Ratio
== END 2025-04-01 13:42 | disposition home health service (06) ==
LOC: OR 05:34 → 4SSUR 09:22 → OR 04-01 13:42
PROVIDERS: ATTEND Orthopaedic Surgery
DX: M17.11 Unilateral primary osteoarthritis, right knee (principal); E66.9 Obesity, unspecified; G89.18 Other acute postprocedural pain; Z68.33 Body mass index [BMI] 33.0-33.9, adult; Z79.82 Long term (current) use of aspirin; Z85.3 Personal history of malignant neoplasm of breast; Z87.891 Personal history of nicotine dependence; Z88.5 Allergy status to narcotic agent; Z90.49 Acquired absence of other specified parts of digestive tract; Z98.51 Tubal ligation status; Z79.899 Other long term (current) drug therapy
CPT/HCPCS: 97161; 64448; 64473; 80053; 83735; 85025; 73560; 27447; C1776; C1713 ×2; C1751; J2250; J1100; J0690 ×3; J2405; J3010; J2795